=== PATIENT | male | born 1970 | race Caucasian/White ===

== ENCOUNTER 2018-05-01 11:40 | Inpatient (IN) | payer OTHER, MEDICAID ==
[~2018-05-01] VITALS: Ht 162.6 cm; Wt 79.9 kg
--- NOTE | 2018-05-01 11:40 | NUR ---
PATIENT BIBA TO BED 10 AT THIS TIME.
[2018-05-01 11:51] VITALS: BP 75/51
--- NOTE | 2018-05-01 12:00 | NUR ---
PT. BIB ALS DUE TO DIZZYNESS AND FALL X AM. PER ALS CREW " HE WAS WALKING [place], HE FELT DIZZY AND FELL". -LOC. BS IN FIELD 114. BS: UPON ARRIVAL 84 ER MD CONTRERAS MADE AWARE. R AC 20G ESTABLISHED IN FIELD AND 400ML INFUSED OF NS. NO PAIN AT THIS TIME. NO LACERATIONS NOTED OR BRUISING. PT. STATES " I AM HUNGRY".PT. ABLE TO RESPOND TO QUESTIONS TO BEST ABILITY. PT. IS AWAKE AND ALERT. SAFETY PRECAUTIONS IMPLEMENTED. WILL CONTINUE TO MONITOR. ER MADE AWARE.
[2018-05-01] MEDS ORDERED: CHOL400T12 PO (12:04)
[2018-05-01] MEDS ORDERED: NIFE30TE8 PO (12:04)
[2018-05-01] MEDS ORDERED: LISI10TA11 PO (12:04)
[2018-05-01] MEDS ORDERED: OLAN20TA1 PO (12:04)
[2018-05-01] MEDS ORDERED: ASPI81CT89 PO (12:04)
--- NOTE | 2018-05-01 12:05 | NUR ---
BS: 84 . ER MD CONTRERAS MADE AWARE. PROVIDED PATIENT WITH 2 ORANGE JUICES.
--- NOTE | 2018-05-01 12:12 | NUR ---
PT. PROVIDED WITH LUNCH TRAY AT THIS TIME.
--- NOTE | 2018-05-01 13:07 | NUR ---
PT. VOMITED , ER MD CONTRERAS MADE AWARE. PT. WAS CHANGED TO CLEAN CLOTHES , PT. STATES " I AM NAUSEOUS". ER MADE AWARE. BS: 133 AT THIS TIME.
[2018-05-01] MEDS ORDERED: NACL 0.9% 1,000 ML IV ONE ×4 (13:10→20:15)
[2018-05-01] MEDS ORDERED: ONDANSETRON 4 MG/2 ML VIAL IVP ONE (13:10)
--- NOTE | 2018-05-01 13:30 | NUR ---
lab specimen collected , lab notified
--- NOTE | 2018-05-01 13:31 | NUR ---
b/p : / , er md hernandez made aware
[2018-05-01 13:44] LABS: BASOPHILS # (AUTO) 0.1 K/uL (0.00-0.22); BASOPHILS % (AUTO) 0.2 % (0.0-2.0); EOSINOPHILS # (AUTO) 0.1 K/uL (0-0.4); EOSINOPHILS % (AUTO) 0.5 % (0.0-4.0); HEMATOCRIT 41.1 % (36-52); HEMOGLOBIN 13.1 g/dL (12.0-18.0); LYMPHOCYTES # (AUTO) 1.7 K/uL (2.0-11.5); LYMPHOCYTES % (AUTO) 7.6 % (20.5-51.1); MEAN CORPUSCULAR HEMOGLOBIN 27 pg (27-31); MEAN CORPUSCULAR HGB CONC 32 g/dL (33-37); MEAN CORPUSCULAR VOLUME 86.2 fL (80-94); MONOCYTES # (AUTO) 0.9 K/uL (0.8-1.0); MONOCYTES % (AUTO) 3.8 % (1.7-9.3); NEUTROPHILS % (AUTO) 87.9 % (42.2-75.2); PLATELET COUNT (AUTO) 288 K/uL (140-450); RED BLOOD CELL COUNT(AUTO) 4.76 MIL/uL (4.20-6.10); RED CELL DISTRIBUTION WIDTH 13.8 % (11.6-13.7); WHITE BLOOD COUNT (AUTO) 22.8 K/uL (4.8-10.8)
[2018-05-01 13:54] LABS: ANION GAP 10.6 (8-16); CARBON DIOXIDE 25.2 mmol/L (21-32); POTASSIUM 4.8 mmol/L (3.5-5.1)
[2018-05-01 14:01] LABS: ALBUMIN 3.2 g/dL (3.4-5.0); TOTAL BILIRUBIN 0.5 mg/dL (0.0-1.0)
--- NOTE | 2018-05-01 14:33 | NUR ---
pt. awake and alert, hob elevated. pt. is resting and states " I feel good". b/p at er md hernandez made aware. NS 2L INFUSING. Will continue to monitor.
[2018-05-01] MEDS ORDERED: DEXT 5% / NACL 0.45% 1,000 ML IV SCH (14:39)
[2018-05-01] MEDS ORDERED: DOCUSATE SODIUM 100 MG GELCAP PO PRN (14:40)
[2018-05-01] MEDS ORDERED: ONDANSETRON 4 MG/2 ML VIAL IM/IVP PRN (14:40)
[2018-05-01] MEDS ORDERED: HYDROcodone/APAP 5/325 MG 1 TAB TAB PO PRN (14:40)
[2018-05-01] MEDS ORDERED: ACETAMINOPHEN 325 MG TAB PO PRN (14:40)
[2018-05-01] MEDS ORDERED: LORazepam 2 MG/ML VIAL IM/IVP PRN (14:40)
[2018-05-01] MEDS ORDERED: MECLIZINE 25 MG TAB PO PRN (14:50)
--- NOTE | 2018-05-01 15:11 | NUR ---
CALLED [facility] AND SPOKE TO SALBADOR WHO WAS TO LET JOSE KNOW ABOUT THE CONDITION OF PATIENT
[2018-05-01 16:18] VITALS: BP 86/47
--- NOTE | 2018-05-01 16:18 | NUR ---
Patient will be admitted to care of DR. ALVARADO . Admited to TELE . Will go to room 110B. Belongings list completed. Report to IRAM GODINEZ .
--- NOTE | 2018-05-01 16:20 | NUR ---
PATIENT ADMITTED TO THE UNIT FROM ER. PATIENT AWAKE, ALERT AND ORIENTED. NO S/S OF DISTRESS. PATIENT DENIES PAIN. BP 86/47. MADE DR ARTHUR AWARE. PATIENT ON TELE MONITORING. BED LOWERED WITH CALL LIGHT WITHIN REACH. WILL CONTINUE TO MONITOR.
--- NOTE | 2018-05-01 16:45 | NUR ---
STOOL, URINE AND MRSA NARES SAMPLE COLLECTED AND SENT TO THE LAB
[2018-05-01 17:34] LABS: MAGNESIUM 2.3 mg/dL (1.8-2.4); PHOSPHORUS 4.2 mg/dL (2.5-4.9); THYROID STIMULATING HORMONE 4.76 uIU/mL (0.34-3.74)
[2018-05-01 17:50] LABS: PROTHROMBIN TIME 10.7 secs (10.8-13.4)
[2018-05-01] MEDS ORDERED: DIPHENOXYLATE /ATROPINE 2.5 MG TAB PO PRN (18:10)
--- NOTE | 2018-05-01 18:45 | NUR ---
PATIENT REFUSED TO HAVE CT. EXPLAINED TO THE PATIENT THAT RISKS OF NOT HAVING IT DONE. PATIENT STILL REFUSED. MADE DR ARTHUR AWARE
[2018-05-01 18:51] LABS: BARBITURATE, URINE NEG. ng/ml (NEG <=200); BENZODIAZEPINE, URINE NEG. ng/mL (NEG <=200); CANNABINOID, URINE NEG. ng/mL (NEG <=50); COCAINE, URINE NEG. ng/mL (NEG <=300); OPIATE, URINE NEG. ng/mL (NEG <=2000); PHENCYCLIDINE SCREEN,URINE NEG. ng/mL (NEG <=25)
[2018-05-01 18:55] LABS: APPEARANCE,URINE CLEAR (CLEAR); BILIRUBIN,URINE NEGATIVE (NEGATIVE); BLOOD, URINE NEGATIVE (NEGATIVE); COLOR,URINE YELLOW (YELLOW); LEUKOCYTE ESTERASE ,URINE NEGATIVE (NEGATIVE); NITRITE, URINE NEGATIVE (NEGATIVE); UGLUCOSE NEGATIVE (NEGATIVE)
--- NOTE | 2018-05-01 19:00 | NUR ---
PATIENT HAD LARGE BM. STOOL LIQUID AND BROWN. PATIENT CLEANED AND REPOSITIONED FOR COMFORT
[2018-05-01 19:06] LABS: RBC,URINE 0-5 (RARE) /HPF (0-5); WBC,URINE 0-5 (RARE) /HPF (0-5)
--- NOTE | 2018-05-01 19:15 | NUR ---
PATIENT REPORT GIVEN AT BEDSIDE. PATIENT ENDORSED IN STABLE CONDITION.
--- NOTE | 2018-05-01 19:16 | NUR ---
RECEIVED REPORT FROM DAY SHIFT NURSE. PT RESTING IN BED. AAOX2. NO C/O OF PAIN OR SOB. IV TO RIGHT AC #20G, NS AT 100 ML/HR INFUSING WELL. SAFETY PRECAUTION IN PLACE.
[2018-05-01 20:00] VITALS: BP 84/52
--- NOTE | 2018-05-01 20:00 | NUR ---
PT HAD LIQUID BROWN STOOL. PT CLEANED AND CHANGED.
--- NOTE | 2018-05-01 21:00 | NUR ---
DR. WEBER MADE AWARE OF PT'S BROWN LIQUID STOOL AND LOW BP. ORDERED NS 1 L BOLUS.
[2018-05-01] MEDS ORDERED: PIPERACILLIN/TAZOBACTAM 3.375 GM VIAL IV ONE (21:16)
[2018-05-01] MEDS: PIPERACILLIN/TAZOBACTAM 3.375 GM VIAL IV ONE ×2 (21:16→21:20)
[2018-05-01] MEDS: OLANZapine 5 MG TAB PO SCH (21:17)
[2018-05-01] MEDS: PIPER/TAZO 3.375GM/D5W PREMIX 50 ML IV SCH (21:17)
--- NOTE | 2018-05-01 22:30 | NUR ---
PT LYING IN BED. PT HAD LARGE LIQUID BROWN STOOL. PT CLEANED AND CHANGED. ALL NEEDS MET AT THIS TIME. SAFETY PRECAUTION IN PLACE. CALL LIGHT WITHIN REACH.
[2018-05-02] VITALS (25 sets, daily range): BP systolic 61–125; BP diastolic 29–94
--- NOTE | 2018-05-02 01:20 | NUR ---
PT LYING IN BED, WATCHING TV. IVF INFUSING WELL. PT KEPT DRY AND COMFORTABLE.
--- NOTE | 2018-05-02 03:30 | NUR ---
PT SLEEPING BUT EASILY AROUSABLE. NO S/S OF PAIN OR RESP DISTRESS.
--- NOTE | 2018-05-02 05:20 | NUR ---
DR. WEBER MADE AWARE OF PT'S LOW BP 78/36. MD WILL ORDER NS BOLUS.
[2018-05-02] MEDS ORDERED: PIPERACILLIN/TAZOBACTAM 3.375 GM VIAL IV ONE (05:34)
[2018-05-02] MEDS: PIPER/TAZO 3.375GM/D5W PREMIX 50 ML IV SCH (05:48)
[2018-05-02] MEDS ORDERED: NACL 0.9% 500 ML IV ONE ×4 (06:00→20:45)
--- NOTE | 2018-05-02 06:00 | NUR ---
PT STILL REFUSING CT ABDOMEN AND CT HEAD. EXPLAINED TO PT THE RISK AND BENEFITS. PT VERBALIZED UNDERSTANDING BUT STILL REFUSED. DR. WEBER MADE AWARE.
--- NOTE | 2018-05-02 07:15 | NUR ---
RECEIVED PATIENT REPORT AT BEDSIDE. PATIENT AWAKE AND ALERT IN BED. PATIENT ON ROOM AIR. PATIENT DENIES DIZZINESS. PATIENT ON TELE MONITORING. FALL PRECAUTIONS IN PLACE. WILL CONTINUE TO MONITOR
[2018-05-02] MEDS: NACL 0.9% 1,000 ML IV SCH ×3 (07:30→19:54)
--- NOTE | 2018-05-02 07:45 | NUR ---
DR. RIZO MADE AWARE OF PT'S BP 91/46. ENDORSED PT TO DAY SHIFT NURSE. PT IN STABLE CONDITION.
[2018-05-02 07:46] LABS: HEMATOCRIT 36.2 % (36-52); HEMOGLOBIN 11.6 g/dL (12.0-18.0); LYMPHOCYTES # (AUTO) 0.7 K/uL (2.0-11.5); LYMPHOCYTES % (AUTO) 4.1 % (20.5-51.1); MEAN CORPUSCULAR HEMOGLOBIN 28 pg (27-31); MEAN CORPUSCULAR HGB CONC 32 g/dL (33-37); MEAN CORPUSCULAR VOLUME 86.9 fL (80-94); MONOCYTES # (AUTO) 0.7 K/uL (0.8-1.0); MONOCYTES % (AUTO) 3.9 % (1.7-9.3); PLATELET COUNT (AUTO) 214 K/uL (140-450); RED BLOOD CELL COUNT(AUTO) 4.16 MIL/uL (4.20-6.10); RED CELL DISTRIBUTION WIDTH 14.2 % (11.6-13.7); WHITE BLOOD COUNT (AUTO) 17.4 K/uL (4.8-10.8)
[2018-05-02 08:18] LABS: ANION GAP 16.3 (8-16); CARBON DIOXIDE 19.7 mmol/L (21-32); CREATININE 2.1 mg/dL (0.7-1.3)
[2018-05-02 08:25] LABS: PHOSPHORUS 3.6 mg/dL (2.5-4.9)
[2018-05-02 08:28] LABS: CHOL/HDL RATIO 1.5 (1-4.5)
--- NOTE | 2018-05-02 08:56 | NUR ---
PATIENT HAS BEEN SCREENED AND CATEGORIZED MODERATE NUTRITION RISK. PATIENT WILL BE SEEN WITHIN 3-5 DAYS OF ADMISSION. 05/04/18-05/06/18 AI MAC MS, RDN
[2018-05-02] MEDS: OLANZapine 5 MG TAB PO SCH ×2 (09:00→21:08)
[2018-05-02] MEDS: CHOLECALCIFEROL 1,000 IU TAB PO SCH (09:00)
[2018-05-02] MEDS: LACTOBACILLUS RHAMNOSUS GG 1 EACH CAP PO SCH (09:00)
[2018-05-02] MEDS: ASPIRIN 81 MG TAB.CHEW PO SCH (09:01)
[2018-05-02] MEDS ORDERED: NACL 0.9% 1,000 ML IV ONE (10:30)
--- NOTE | 2018-05-02 10:34 | NUR ---
MADE DR RIZO AWARE OF PATIENT'S LOW BP. PATIENT EVALUATED BY DR RIZO IN THE ROOM. PATIENT WAS ABLE TO SIT HIMSELF UP AT THE SIDE OF THE BED. BP RECHECKED 78/34 HR 93. NO S/S OF DISTRESS NOTED. PATIENT DENIES DIZZINESS OR PAIN. ORDERS 1L NS BOLUS. WILL CONTINUE TO MONITOR
--- NOTE | 2018-05-02 11:20 | NUR ---
1L NS BOLUS DONE. BP 76/44. NO S/S OF DISTRESS NOTED. PATIENT DENIES DIZZINESS OR PAIN. DR RIZO PRESENT IN THE ROOM. ORDERS PATIENT TO BE TRANSFERRED TO ICU
[2018-05-02] MEDS ORDERED: NOREPINEPHRINE 8 MG in DEXTROSE 5% 250 ML IV PRN (12:00)
[2018-05-02] MEDS ORDERED: VANCOMYCIN 500 MG VIAL PO SCH (12:00)
[2018-05-02] MEDS: VANCOMYCIN 500 MG VIAL PO SCH ×3 (12:10→23:36)
[2018-05-02] MEDS: PHARMACY COMMENTS MC SCH ×3 (12:16→23:36)
[2018-05-02] MEDS: metroNIDAZOLE 500 MG/NS PREMIX 100 ML IV SCH ×2 (12:40→20:18)
--- NOTE | 2018-05-02 13:00 | NUR ---
RECEIVED PT TRANSFERRED FROM ROOM 110B, PT IS AAOX4, ABLE TO FOLLOW COMMANDS AND MAKE NEEDS KNOWN, NO S/S OF DISTRESS, CLEAR LUNG SOUNDS BRY, ON RA, O2 SAT 97%, DENIES CHEST PAIN, SR ON DUMP MOTORMAN, SOFT ABDOMEN WITH ACTIVE BOWEL SOUNDS, INCONTINENT WITH B&B'S, ABLE TO MOVE ALL EXTREMITIES, SKIN IS WARM AND DRY TO TOUCH, IV SITE TO RIGHT AC, 20GA, RUNNING NS AT 160ML/HR. VSS, DENIES PAIN, ORIENTATED ICU ENVIRONMENT AND EXPLAINED THE REASON HERE TO PT, PT VERBALIZED UNDERSTANDING, HOB ELEVATED 30 DEGREES, SAFETY MEASURES IN PLACE, CALL LIGHT WITHIN REACH, WILL CONTINUE TO MONITOR.
--- NOTE | 2018-05-02 13:05 | NUR ---
DR. CARDOZO CAME IN TO SEE PT AT BEDSIDE, WILL FOLLOW UP WITH NEW ORDERS.
--- NOTE | 2018-05-02 14:00 | NUR ---
NO CHANGE OF CONDITION AT THIS TIME, VSS, DENIES PAIN. PT IS ABLE TO REPOSITION HIMSELF.
[2018-05-02] MEDS: MIDODRINE 5 MG TAB PO SCH ×3 (14:54→23:33)
--- NOTE | 2018-05-02 15:00 | NUR ---
MCDANIELS CATHETER INSERTED WITH ASEPTIC TECHNIQUE, PT TOLERATED WELL.
--- NOTE | 2018-05-02 15:40 | NUR ---
PICC LINE CONSENT SIGNED BY PATIENT, EXPLAINED THE PROCEDURE AND RISKS, PT VERBALIZED UNDERSTANDING.
--- NOTE | 2018-05-02 15:50 | NUR ---
CALLED PT'S CAREGIVER TO OBTAIN THE PT'S DECISION MAKER, THE CAREGIVER JOSE BARKER GAVE ME THE NAME ADONAY ANGIE [phone], CALLED THIS PERSON AND LEFT MESSAGE, WAITING TO CALL BACK.
--- NOTE | 2018-05-02 16:13 | NUR ---
DR. RIZO CAME IN TO ASSESS PT, PT KNOWS HIS NAME AND DATE OF , HE IS IN [facility] ICU, SO DR. RIZO SAID IT IS OK FOR PT TO SIGN THE PICC CONSENT.
--- NOTE | 2018-05-02 16:19 | NUR ---
ADONAY ADAMS CALLED BACK, SHE SAID SHE IS NOT THE DECISION MAKER FOR HIM, PT IS ABLE TO SIGN EVERYTHING BY HIMSELF, NO DECISION MAKER AT THIS TIME.
--- NOTE | 2018-05-02 16:48 | NUR ---
PICC LINE INSERTED BY PICC LINE NURSE IRAM ARCEO AT BEDSIDE, X-RAY CONFIRMED THE INSERTION, AND OK TO USE PER PICC LINE NURSE.
--- NOTE | 2018-05-02 18:00 | NUR ---
PT IS EATING IN BED, BP 68/29, DENIES PAIN, NO S/S OF HYPOTENSION, LEVOPHED DRIP STATED.
--- NOTE | 2018-05-02 18:59 | NUR ---
PT'S HR WENT UP TO 150, FACE TURN RED, TEMP 97.0F, HOLD LEVOPHED, DR. CHADWICK MADE AWARE AND CAME TO SEE PT, WILL FOLLOW UP WITH NEW ORDERS. Addendum: 05/02/18 at 1904 by Julian Og RN PT STATED TIRED, DIFFICULTY BREATHING, LUNG SOUNDS CLEAR.
--- NOTE | 2018-05-02 19:19 | NUR ---
REPORT GIVEN TO DOG LICENSE OFFICER SUPERVISOR NURSE AT BEDSIDE FOR CONTINUE OF CARE.
--- NOTE | 2018-05-02 19:20 | NUR ---
RECEIVED REPORT FROM IRAM BAUM FOR CONTINUITY OF CARE. PT IS A/OX3, ON ROOM AIR. PT IS ABLE TO MAKE NEEDS KNOWN, ABLE TO FOLLOW COMMANDS. PT ON BEDREST. SKIN IS INTACT. PT HAS A 20G IV TO RIGHT FOREARM AND PIIC LINE TO RIGHT UPPER ARM, BOTH ASYMPTOMATIC AND INTACT. DISCUSSED PLAN OF CARE WITH PT, PT VERBALIZED UNDERSTANDING. VITAL SIGNS WITHIN NORMAL LIMITS. PT STABLE, DENIES PAIN, NO SIGNS OF DISTRESS NOTED AT THIS TIME. PT POSITIONED FOR COMFORT. BED IN LOWEST POSITION, BED ALARM ON. CALL LIGHT WITHIN REACH, WILL CONTINUE TO MONITOR.
--- NOTE | 2018-05-02 19:58 | NUR ---
NOTIFIED DR PANIAGUA ABOUT LOW BLOOD PRESSURES; CURRENTLY 70/48. PT AOX3, DEVELOPMENTALLY DISABLED, TALKING TO STAFF @ BEDSIDE. DENIES CP/SOB, DIZZINESS. MD AWARE, 0.5 LITER BOLUS ORDERED. WILL CONTINUE TO OBSERVE
[2018-05-02] MEDS: PIPER/TAZO 2.25GM/D5W PREMIX 50 ML IV SCH (20:18)
--- NOTE | 2018-05-02 20:40 | NUR ---
INFORMED DR PANIAGUA CURRENT BLOOD PRESSURE 70/51, 0.5 LITER GIVEN, MD ORDERED 2ND 0.5 LITER BOLUS. WILL CARRY OUT ORDERS. WILL CONTINUE TO OBSERVE
[2018-05-02] MEDS ORDERED: OLANZapine 5 MG TAB ONE (20:49)
--- NOTE | 2018-05-02 21:06 | NUR ---
NOTIFIED DR PANIAGUA BP 64/38; PHENYLEPHRINE DRIP ORDERED WILL CONTINUE TO OBSERVE.
[2018-05-02] MEDS ORDERED: PHENYLEPHRINE 10 MG in NACL 0.9% 250 ML IV PRN (21:10)
[2018-05-02] MEDS ORDERED: PHENYLEPHRINE 10 MG/ML VIAL ONE ×4 (21:19→22:45)
[2018-05-02] MEDS: PHENYLEPHRINE 40 MG in NACL 0.9% 250 ML IV PRN (22:54)
[2018-05-03] VITALS (77 sets, daily range): BP systolic 64–162; BP diastolic 24–94
--- NOTE | 2018-05-03 00:30 | NUR ---
VITAL SIGNS WITHIN NORMAL LIMITS, BLOOD PRESSURE MORE STABLE NOW. PT DENIES PAIN, NO SIGNS OF DISTRESS NOTED AT THIS TIME. PT POSITIONED FOR COMFORT. BED IN LOWEST POSITION, BED ALARM ON. CALL LIGHT WITHIN REACH, WILL CONTINUE TO MONITOR.
--- NOTE | 2018-05-03 03:21 | NUR ---
KENDELL-SYNEPHRINE WAS INCREASED DUE TO LOW BLOOD PRESSURE.
[2018-05-03] MEDS: NACL 0.9% 1,000 ML IV SCH ×2 (03:25→05:29)
--- NOTE | 2018-05-03 03:37 | NUR ---
PT BLOOD PRESSURE STARTED DECREASING AND PT STARTED DESATURATING. LUNG SOUNDS CLEAR AND TEMPERATURE 98.0, BUT PT IS FLUSHED. REPOSITIONED PT AND O2 IS BEING GIVEN TO PT. DR PANIAGUA CAME TO SEE PT AND SAID TO STOP IVF AND HE WILL ORDER BIPAP FOR PT. WILL CONTINUE TO MONITOR PT CLOSELY.
[2018-05-03] MEDS: PIPER/TAZO 2.25GM/D5W PREMIX 50 ML IV SCH ×3 (04:39→20:34)
--- NOTE | 2018-05-03 04:39 | NUR ---
JAMES BLOOD FROM PIIC LINE AND FLUSHED WELL. PT TOLERATED WELL.
[2018-05-03 05:05] LABS: HEMATOCRIT 34.5 % (36-52); HEMOGLOBIN 11.1 g/dL (12.0-18.0); LYMPHOCYTES # (AUTO) 0.4 K/uL (2.0-11.5); LYMPHOCYTES % (AUTO) 3.8 % (20.5-51.1); MEAN CORPUSCULAR HEMOGLOBIN 28 pg (27-31); MEAN CORPUSCULAR HGB CONC 32 g/dL (33-37); MEAN CORPUSCULAR VOLUME 86.6 fL (80-94); MONOCYTES # (AUTO) 0.6 K/uL (0.8-1.0); MONOCYTES % (AUTO) 5.2 % (1.7-9.3); NEUTROPHILS # (AUTO) 10.5 K/uL (1.8-7.7); PLATELET COUNT (AUTO) 223 K/uL (140-450); RED BLOOD CELL COUNT(AUTO) 3.99 MIL/uL (4.20-6.10); RED CELL DISTRIBUTION WIDTH 14.6 % (11.6-13.7); WHITE BLOOD COUNT (AUTO) 11.5 K/uL (4.8-10.8)
[2018-05-03] MEDS: metroNIDAZOLE 500 MG/NS PREMIX 100 ML IV SCH (05:29)
[2018-05-03] MEDS ORDERED: PHENYLEPHRINE 10 MG/ML VIAL ONE (05:37)
[2018-05-03] MEDS: VANCOMYCIN 500 MG VIAL PO SCH (05:39)
[2018-05-03] MEDS: PHARMACY COMMENTS MC SCH (05:39)
[2018-05-03] MEDS: PHENYLEPHRINE 40 MG in NACL 0.9% 250 ML IV PRN ×2 (05:39→10:13)
[2018-05-03] MEDS: MIDODRINE 5 MG TAB PO SCH ×3 (06:33→18:31)
[2018-05-03 06:37] LABS: MAGNESIUM 1.4 mg/dL (1.8-2.4); PHOSPHORUS 3.3 mg/dL (2.5-4.9); POTASSIUM 4.5 mmol/L (3.5-5.1)
[2018-05-03 06:38] LABS: ANION GAP 14.6 (8-16); CARBON DIOXIDE 16.9 mmol/L (21-32); CREATININE 1.7 mg/dL (0.7-1.3)
--- NOTE | 2018-05-03 06:40 | NUR ---
UPDATED DR GAITAN ABOUT THIS SHIFT'S EVENTS AND ALL THE CHANGES MADE OVERNIGHT.
--- NOTE | 2018-05-03 07:21 | NUR ---
ENDORSED PT TO IRAM GUPTA FOR CONTINUITY OF CARE. PT IN STABLE CONDITION. Addendum: 05/03/18 at 0722 by Little Cormier RN ENDORSED TO HUBER LADD.
--- NOTE | 2018-05-03 07:30 | NUR ---
RECEIVED PT IN BED A&O X3, VERBAL, ABLE TO MAKE NEEDS KNOWN. PERRL. BILATERAL LUNG SOUNDS CLEAR. DENIES SOB. ON O2 @ 4LMIN VIA NC. ROUND ABDOMEN. BOWEL SOUNDS ACTIVE. ABLE TO MOVE ALL EXTREMITIES WITH RIGHT ARM WEAKNESS. PICC LINE TO RIGHT UPPER ARM AND PERIPHERAL IV LINE TO RAC 20G. PATENT AND ASYMPTOMATIC. KENDELL-SYNEPHRINE RUNNING AT 150 MCG/MIN TO KEEP SBP ABOVE 90. CALL LIGHT IN REACH. BED KEPT ELEVATED TO 30 DEGREES AND TO THE LOWEST. AFEBRILE. DENIES PAIN OR DISCOMFORT. WILL CONTINUE TO MONITOR.
[2018-05-03] MEDS: ASPIRIN 81 MG TAB.CHEW PO SCH (08:08)
[2018-05-03] MEDS: LACTOBACILLUS RHAMNOSUS GG 1 EACH CAP PO SCH (08:08)
--- NOTE | 2018-05-03 08:15 | NUR ---
DR. Hemant XIE, RING CUTTER LATHE OPERATOR IN TO SEE PT.
--- NOTE | 2018-05-03 08:15 | NUR ---
PT ATE BREAKFAST 100% AND FED HIMSELF WITH SET UP ASSISTANCE.
[2018-05-03] MEDS: OLANZapine 5 MG TAB PO SCH ×2 (08:50→20:36)
[2018-05-03] MEDS: CHOLECALCIFEROL 1,000 IU TAB PO SCH (08:50)
[2018-05-03] MEDS ORDERED: MAG SULF 2000 MG/WATER PREMIX 50 ML IV SCH (09:03)
--- NOTE | 2018-05-03 09:15 | NUR ---
VOMITED LARGE AMOUNT OF PREVIOUSLY INGESTED FOOD. COMPLETE BED BATH GIVEN. LINENS CHANGED.
--- NOTE | 2018-05-03 09:30 | NUR ---
DR. RIZO NOTIFIED OF PT'S VOMITING. WILL KEEP PT. NPO EXCEPT MEDS.
[2018-05-03] MEDS ORDERED: DEXT 5% / NACL 0.45% 1,000 ML IV SCH (09:40)
--- NOTE | 2018-05-03 11:15 | NUR ---
TITRATED KENDELL-SYNEPHRINE DRIP TO 100 MCG/MIN DUE TO BP 128/93. PT DENIES ANY PAIN OR DISCOMFORT. WILL CONTINUE TO MONITOR.
--- NOTE | 2018-05-03 12:33 | NUR ---
PT THREW UP SOON HE TOOK THE MIDODRINE PO ORDERED. DR. RIZO WAS NOTIFIED WITH NO NEW ORDER BUT TO CONTINUE TO KEEP HIM NPO EXCEPT MEDS.
--- NOTE | 2018-05-03 14:14 | NUR ---
PT DENIES ANY PAIN OR DISCOMFORT. DENIES N/V. CONTINUES WITH NPO EXCEPT MEDS. VSS. WILL CONTINUE TO MONITOR.
--- NOTE | 2018-05-03 14:17 | NUR ---
TITRATED KENDELL-SYNEPHRINE DRIP DOWN TO 50 MCG/MIN DUE TO JF=979/93. WILL CONTINUE TO MONITOR.
--- NOTE | 2018-05-03 14:19 | NUR ---
ECHOCARDIOGRAM IS BEING PERFORMED AT BED SIDE.
--- NOTE | 2018-05-03 16:20 | NUR ---
PT RESTING IN BED. DENIES ANY PAIN OR DISCOMFORT. DENIES N/V. VSS. AFEBRILE. REPOSITIONED FOR COMFORT. CONTINUING W/ KENDELL-SYNEPHRINE DRIP @50 MCG/MIN. WILL CONTINUE TO MONITOR.
--- NOTE | 2018-05-03 16:50 | NUR ---
PT HAD A LARGE AMOUNT OF VOMIT. NOTIFIED DR. RIZO. NEW ORDER RECEIVED FOR KUB. ASSISTED PT FOR BED BATH AND HYGIENE. TOLERATED WELL. PT DENIES FURTHER N/V AT THIS TIME. WILL CONTINUE TO MONITOR.
--- NOTE | 2018-05-03 17:37 | NUR ---
KUB IS BEING PERFORMED AT BED SIDE AT THIS TIME.
--- NOTE | 2018-05-03 17:45 | NUR ---
KENDELL-SYNEPHRINE DRIP STOPPED DUE TO BU=973/79 AT THIS TIME. PT DENIES ANY DISCOMFORT OR N/V. VSS. WILL CONTINUE TO MONITOR.
--- NOTE | 2018-05-03 19:09 | NUR ---
REPORT GIVEN TO INCOMING NURSE, IRAM VIVAS. PT VSS AND DENIES ANY DISCOMFORT AND N/V. ALL SAFETY PRECAUTIONS ARE IN PLACE.
--- NOTE | 2018-05-03 19:10 | NUR ---
RECEIVED REPORT FROM IRAM MORALEZ FOR CONTINUITY OF CARE. PT IS A/OX3, ON 4L O2 VIA NASAL CANNULA. PT IS ABLE TO MAKE NEEDS KNOWN, ABLE TO FOLLOW COMMANDS. PT ON BEDREST. SKIN IS INTACT. PT HAS A 20G IV TO RIGHT AC WITH BLOOD IN TUBING, FLUSHED WITH 10ML NS AND LOCKED TUBING BUT BLOOD STILL BACK FLOWS. PT ALSO HAS PICC LINE TO RIGHT UPPER ARM, ASYMPTOMATIC AND INTACT. DISCUSSED PLAN OF CARE WITH PT, PT VERBALIZED UNDERSTANDING. VITAL SIGNS WITHIN NORMAL LIMITS. PT STABLE, DENIES PAIN, NO SIGNS OF DISTRESS NOTED AT THIS TIME. PT POSITIONED FOR COMFORT. BED IN LOWEST POSITION, BED ALARM ON. CALL LIGHT WITHIN REACH, WILL CONTINUE TO MONITOR.
--- NOTE | 2018-05-03 20:15 | NUR ---
PT AGITATED, HR 142 TO 169, DOCTOR ARCELIA KNOW HER CONDITION
--- NOTE | 2018-05-03 20:38 | NUR ---
ADMINISTERED SCHEDULED MEDICATIONS, PT TOLERATED WELL.
--- NOTE | 2018-05-03 22:10 | NUR ---
PT ASKED FOR LIGHTS TO BE TURNED OFF. PT IS RESTING COMFORTABLY NOW.
--- NOTE | 2018-05-03 23:00 | NUR ---
ON COMING NOTE RECEIVED REPORT FROM NURSE. PT IS A/OX2,TIME IS SITUATIONAL R/T PT DX OF DOWNS SYNDROME. LUNG CTA IN ALL PORTILLO. RESP IS EVEN AND UNLABORED. PT ON TELEMONITOR WITH SR AT 86. PT ABD ROUND TIGHT AND DISTENDED, WITH HYPOACTIVE BS IN ALL QUAD. ON 2L O2 VIA NASAL CANNULA AND WITH SATURATION AT 98%. PT HAS F/C TO GRAVITY WITH CLEAR NAYE COLOR URINE.PT IS ABLE TO MAKE NEEDS KNOWN, ABLE TO FOLLOW COMMANDS. PT ON BEDREST. SKIN IS INTACT. PT HAS A 20G IV TO RIGHT AC WITH BLOOD IN TUBING, FLUSHED WITH 10ML NS AND LOCKED TUBING BUT BLOOD STILL BACK FLOWS. PT ALSO HAS PICC LINE TO RIGHT UPPER ARM, ASYMPTOMATIC AND INTACT. DISCUSSED PLAN OF CARE WITH PT, PT VERBALIZED UNDERSTANDING. VSS FOR CURRENT CONDITION AND HISTORY. DENIES PAIN, NO SIGNS OF DISTRESS NOTED AT THIS TIME. PT POSITIONED FOR COMFORT. BED IN LOWEST POSITION, BED ALARM ON. CALL LIGHT WITHIN REACH, WILL CONTINUE TO MONITOR.
--- NOTE | 2018-05-03 23:28 | NUR ---
ENDORSED PT TO OFF TRACK BETTING MANAGER. PT STABLE.
[2018-05-04] VITALS (8 sets, daily range): BP systolic 100–141; BP diastolic 68–99
--- NOTE | 2018-05-04 00:30 | NUR ---
PT HAD EMESIS GREEN IN CLOR AND BILE FOWL SMELLING. NURSE WALKED IN ROOM PT BEGAN TO HAD EMESIS AGAIN AND PT OVER FLOWED EMESIS BASIN X3. PT HAD APPROXIMATELY 500ML OF EMESIS. PT CLEANED AND PLACE AT 45%, V/S 112/67, 91,22, 97.8. PT DENIES ANY PAIN AND DENIES NEED FOR MORE EMESIS
--- NOTE | 2018-05-04 01:30 | NUR ---
DR PANIAGUA ORDER EKG, BUT HR IS OVER 148, PT MOVING NON STOP , UNABLE TO OBTAIN EKG. HE WAS NOTIFIED AND HOLD THE ORDER UNTIL THE PT IS ABLE TO STAY STEEL/. Addendum: 05/04/18 at 0528 by Graciela Khan RT WRONG PATIENT
--- NOTE | 2018-05-04 04:00 | NUR ---
AT [address] DR PANIAGUA CALLED THE ER DR KEENE AND INTUBATED THE PT. PT WAS INTUBATED WITH SIZE 7.5, AT 25CM AT [facility]. X RAY WAS DONE, VENT SETTINGS AC 12, VT 500, PEEP 5, 50% FIO2. SPUTUM WAS COLLECTED AND SEND TO THE LAB.VENT CK WAS DONE, HR STILL HIGH 132, BP IS 253/108. PT IS ON PROPOFOL AT THIS TIME. Addendum: 05/04/18 at 0527 by Graciela Khan RT WRONG PATIENT
[2018-05-04] MEDS: MIDODRINE 5 MG TAB PO SCH ×4 (05:09→18:00)
[2018-05-04] MEDS: PIPER/TAZO 2.25GM/D5W PREMIX 50 ML IV SCH ×3 (05:14→20:13)
[2018-05-04 05:36] LABS: BASOPHILS % (AUTO) 0.1 % (0.0-2.0); EOSINOPHILS # (AUTO) 0.1 K/uL (0-0.4); EOSINOPHILS % (AUTO) 0.7 % (0.0-4.0); HEMOGLOBIN 10.4 g/dL (12.0-18.0); LYMPHOCYTES # (AUTO) 0.8 K/uL (2.0-11.5); LYMPHOCYTES % (AUTO) 8.6 % (20.5-51.1); MEAN CORPUSCULAR HEMOGLOBIN 28 pg (27-31); MEAN CORPUSCULAR HGB CONC 33 g/dL (33-37); MEAN CORPUSCULAR VOLUME 85.5 fL (80-94); MONOCYTES # (AUTO) 0.6 K/uL (0.8-1.0); MONOCYTES % (AUTO) 7.1 % (1.7-9.3); NEUTROPHILS # (AUTO) 7.4 K/uL (1.8-7.7); NEUTROPHILS % (AUTO) 83.5 % (42.2-75.2); PLATELET COUNT (AUTO) 185 K/uL (140-450); RED BLOOD CELL COUNT(AUTO) 3.74 MIL/uL (4.20-6.10); RED CELL DISTRIBUTION WIDTH 14.5 % (11.6-13.7); WHITE BLOOD COUNT (AUTO) 8.9 K/uL (4.8-10.8)
[2018-05-04 05:50] LABS: ANION GAP 12.3 (8-16); CARBON DIOXIDE 19.7 mmol/L (21-32); CREATININE 1.4 mg/dL (0.7-1.3)
[2018-05-04 05:54] LABS: MAGNESIUM 2.1 mg/dL (1.8-2.4); PHOSPHORUS 2.6 mg/dL (2.5-4.9)
[2018-05-04] MEDS ORDERED: METOCLOPRAMIDE 10 MG/2 ML INJ VIAL IVP PRN (07:10)
--- NOTE | 2018-05-04 07:15 | NUR ---
ASSUMED CONTINUITY OF CARE, REPORT RECEIVED FROM POLLO RN. PATIENT IN STABLE CONDITION. FULL ASSESSMENT TO FOLLOW. Addendum: 05/04/18 at 0801 by Brittany Peters RN PATIENT IS AWAKE, ORIENTED, ABLE TO FOLLOW COMMANDS. SKIN WARM TO TOUCH WNL, TOENAILS WNL, NO EDEMA, WITH HAIR GROWTH AND +2 BILATERAL PEDAL PULSES. ON ROOM AIR. FC IN PLACE. BILATERAL BREATH SOUNDS ARE CLEAR. ERIN PICC LINE, DRESSING DRY AND INTACT. RFA PERIPHERAL IV PATENT AND INTACT. CALL LIGHT WITHIN REACH, BED AT LOWEST POSSIBLE POSITION. WILL CONTINUE TO MONITOR PATIENT.
--- NOTE | 2018-05-04 08:00 | NUR ---
DR ALVARADO AND GROUP ROUNDING ON THE PATIENT, WILL FOLLOW UP WITH ORDERS.
--- NOTE | 2018-05-04 08:10 | NUR ---
DOWNGRADED TO TELE STATUS
--- NOTE | 2018-05-04 08:40 | NUR ---
MORNING MEDS GIVEN, PATIENT TOLERATED WELL.
[2018-05-04] MEDS: LACTOBACILLUS RHAMNOSUS GG 1 EACH CAP PO SCH (08:41)
[2018-05-04] MEDS: ASPIRIN 81 MG TAB.CHEW PO SCH (08:41)
[2018-05-04] MEDS: CHOLECALCIFEROL 1,000 IU TAB PO SCH (08:42)
[2018-05-04] MEDS: OLANZapine 5 MG TAB PO SCH ×2 (08:42→20:13)
[2018-05-04] MEDS: DEXT 5% /NACL 0.9% 1,000 ML IV SCH (09:33)
--- NOTE | 2018-05-04 11:05 | NUR ---
Social Work Notes: I attempted to contact Patient's facility [facility] at . No one responded and I left a voice mail Message with my contact information and a request for a call back.
--- NOTE | 2018-05-04 19:06 | NUR ---
DR WEBER MADE AWARE THAT MIDODRINE WAS WITHHELD FOR 1800 DOSE BP 132/88
--- NOTE | 2018-05-04 19:15 | NUR ---
RECEIVED BEDSIDE REPORT FROM MORNING NURSE, PATIENT AAO X 3, VERBALLY RESPONSIVE, ABLE TO FOLLOW COMMANDS. ON ROOM AIR WITH O2 SAT 95% NOTED. BILATERAL LUNG SOUND CLEAR. PICC LINE TO RIGHT UPPER ARM, RUNNING WITH D5NS 60ML/HR. ACTIVE BOWEL SOUND FROM ALL 4 QUADS. NO N/V NOTED. DENIES PAIN AT THIS TIME. MCDANIELS CATH IN PLACE WITH CLEAR YELLOW URINE NOTED. ABLE TO MOVE ALL EX'S WITH SLIGHT GENERALIZED WEAKNESS NOTED. HOB ELEVATED, BED IN LOW POSITION, CALL LIGHT WITHIN REACH. WILL CONTINUE TO MONITOR.
--- NOTE | 2018-05-04 19:25 | NUR ---
REPORT GIVEN TO NOC RN FOR CONTINUITY OF CARE. PATIENT IN STABLE CONDITION
--- NOTE | 2018-05-04 21:00 | NUR ---
ADMINISTERED SCHEDULED MEDICATIONS ORDERED. TOLERATED WELL, DENIES NAUSEA NOTED. WILL CONTINUE TO MONITOR.
--- NOTE | 2018-05-04 23:00 | NUR ---
NO ACUTE DISTRESS NOTED. DENIES PAIN. VSS. WILL CONTINUE TO MONITOR.
[2018-05-05] VITALS: BP 120/76
--- NOTE | 2018-05-05 | NUR ---
HOLD MIDODRINE DUE TO SBP ABOVE 120 PARAMETER. WILL CONTINUE TO MONITOR.
--- NOTE | 2018-05-05 01:00 | NUR ---
PATIENT IN ASLEEP AT THIS TIME, AROUSABLE TO VOICE. NO ACUTE DISTRESS NOTED. DENIES PAIN. WILL CONTINUE TO MONITOR.
[2018-05-05] MEDS: DEXT 5% /NACL 0.9% 1,000 ML IV SCH (01:38)
--- NOTE | 2018-05-05 03:00 | NUR ---
PATIENT IN ASLEEP AT THIS TIME, AROUSABLE TO VOICE. DENIES PAIN. NO ACUTE DISTRESS NOTED.
[2018-05-05 04:00] VITALS: BP 156/74
[2018-05-05] MEDS: PIPER/TAZO 2.25GM/D5W PREMIX 50 ML IV SCH (05:02)
--- NOTE | 2018-05-05 05:10 | NUR ---
ADMINISTERED IV ABX ORDERED. NO ACUTE DISTRESS NOTED.
[2018-05-05] MEDS: MIDODRINE 5 MG TAB PO SCH ×2 (06:00)
--- NOTE | 2018-05-05 06:00 | NUR ---
HOLD MIDODRINE PER PARAMETER, BP 135/90 NOTED. WILL CONTINUE TO MONITOR.
--- NOTE | 2018-05-05 06:40 | NUR ---
REPORT RECEIVED FROM ICU NURSE , PT TRANSFERRED FROM [facility] TO ROOM 108A IN STABLE CONDITION. PT AOX1-2, HE IS ON FALLS PRECAUTIONS WITH ALL FALLS PRECAUTIONS IN PLACE. PT HAS PICC LINE IN R UPPER ARM IN TACT WELL OTHER IV SITE 20G ON R F/A. PT LUNGS CLEAR BUT BREATH SOUNDS DIMINISHED. PT ABDOMEN DISTENDED AND FIRM WITH DIMINISHED B/S. PT SKIN INTACT EXCEPT FOR REDNESS OF SACRAL AND ORLY AREA. SOME MILD EDEMA NOTED IN HANDS. PT HAS MCDANIELS CATHETER SIZE 16FRENCH INTACT AND DRAINING LIGHT NAYE URINE. PT DENIES PAIN V/S FOLLOWS T 97.4 P 85 R 20 B/P 131/92 02 91% ON R/A.
--- NOTE | 2018-05-05 06:40 | NUR ---
TRANSFERRED TO FLOOR ROOM 109A, REPORT GIVEN TO LEXY. RN. PATIENT VSS, NO ACUTE DISTRESS NOTED.
--- NOTE | 2018-05-05 07:34 | NUR ---
GAVE REPORT TO NOAH RN DAYSHIFT NURSE AT BEDSIDE FOR CONTINUITY OF CARE, PT IN STABLE CONDITION.
--- NOTE | 2018-05-05 07:35 | NUR ---
Received bedside report from pm nurse Lyric. Pt awake, verbally responsive, no c/o discomfort, respirations even & nonlabored in room air. Right upper arm PICC line intact & asymptomatic. Call light within reach.
[2018-05-05 08:00] VITALS: BP 143/95
[2018-05-05] MEDS ORDERED: OLAN5TAB30 PO (08:02)
[2018-05-05] MEDS: CHOLECALCIFEROL 1,000 IU TAB PO SCH (09:00)
[2018-05-05] MEDS: ASPIRIN 81 MG TAB.CHEW PO SCH (09:00)
[2018-05-05] MEDS: OLANZapine 5 MG TAB PO SCH (09:00)
[2018-05-05] MEDS: LACTOBACILLUS RHAMNOSUS GG 1 EACH CAP PO SCH (09:00)
[2018-05-05 10:07] LABS: BASOPHILS % (AUTO) 0.4 % (0.0-2.0); EOSINOPHILS # (AUTO) 0.2 K/uL (0-0.4); EOSINOPHILS % (AUTO) 1.8 % (0.0-4.0); HEMATOCRIT 35.3 % (36-52); HEMOGLOBIN 11.5 g/dL (12.0-18.0); MEAN CORPUSCULAR HEMOGLOBIN 28 pg (27-31); MEAN CORPUSCULAR HGB CONC 33 g/dL (33-37); MEAN CORPUSCULAR VOLUME 85.6 fL (80-94); MONOCYTES # (AUTO) 0.4 K/uL (0.8-1.0); MONOCYTES % (AUTO) 3.5 % (1.7-9.3); NEUTROPHILS # (AUTO) 9.9 K/uL (1.8-7.7); NEUTROPHILS % (AUTO) 85.3 % (42.2-75.2); PLATELET COUNT (AUTO) 265 K/uL (140-450); RED BLOOD CELL COUNT(AUTO) 4.13 MIL/uL (4.20-6.10); RED CELL DISTRIBUTION WIDTH 14.8 % (11.6-13.7); WHITE BLOOD COUNT (AUTO) 11.6 K/uL (4.8-10.8)
[2018-05-05 10:23] LABS: ANION GAP 15.4 (8-16); CARBON DIOXIDE 20.8 mmol/L (21-32); CREATININE 1.4 mg/dL (0.7-1.3); POTASSIUM 4.2 mmol/L (3.5-5.1)
--- NOTE | 2018-05-05 10:25 | NUR ---
Right upper arm PICC line & lino cath discontinued. Name band removed. Written & discharge instructions provided to pt & caregiver Brad. Pt discharged to [facility]. Amb off unit accompanied by caregiver. All belongings with pt upon departure.
[2018-05-05] MEDS ORDERED: LISI10TA11 PO (11:28)
== END 2018-05-05 10:20 | disposition home health service (06) | DRG 371 ==
LOC: MED 11:40 → MTU 14:39 → MIC 05-02 13:00 → MTU 05-05 06:24
PROVIDERS: ADMIT General Practice; ATTEND General Practice
PROC: 06H033Z Insertion of Infusion Device into Inferior Vena Cava, Percutaneous Approach (ICD-10-PCS; principal; 2018-05-02)
DX: A04.9 Bacterial intestinal infection, unspecified (principal); N17.0 Acute kidney failure with tubular necrosis; J81.1 Chronic pulmonary edema; E44.0 Moderate protein-calorie malnutrition; E87.1 Hypo-osmolality and hyponatremia; A09 Infectious gastroenteritis and colitis, unspecified; I95.9 Hypotension, unspecified; G90.8 Other disorders of autonomic nervous system; E83.42 Hypomagnesemia; G80.9 Cerebral palsy, unspecified; I10 Essential (primary) hypertension; F29 Unspecified psychosis not due to a substance or known physiological condition; E66.9 Obesity, unspecified; E86.0 Dehydration; E02 Subclinical iodine-deficiency hypothyroidism; F71 Moderate intellectual disabilities; Z68.30 Body mass index [BMI] 30.0-30.9, adult; Q90.9 Down syndrome, unspecified; Z79.82 Long term (current) use of aspirin; Z79.899 Other long term (current) drug therapy
CPT/HCPCS: 36415; 71045; 74018; 80048; 80053; 80305; 81001; 82140; 82948; 83036; 83605; 83690; 83735; 83880; 84100; 84134; 84443; 84484; 85025; 85610; 85730; 87040; 87045; 87070; 87081; 89055; 93005; 93880; 96374; 97530; 99285; C1751; J2370; J2405; J2543; J3370; J3475; J3490; J7030; J7042; J7060; Q0092

== ENCOUNTER 2018-09-13 16:45 | Inpatient (IN) | payer OTHER, MEDICAID ==
[~2018-09-13] VITALS: Ht 157.5 cm; Wt 75.3 kg
[~2018-09-13 16:45] MED LIST: ASPI-1718 PO; CHOL400T12 PO; LISI10TA11 PO; OLAN20TA1 PO; OLAN5TAB30 PO
--- NOTE | 2018-09-13 16:48 | NUR ---
Patient transferred to bed 3 via wheelchair, accompanied by laboratory animal caretaker. RN evaluating patient at bedside.
[2018-09-13 16:50] VITALS: BP 69/29
--- NOTE | 2018-09-13 16:55 | NUR ---
PT PLACED IN [place] POSITION DUE TO LOW BP 69/29. DR. LOPEZ AWARE OF PT CONDITION.
[2018-09-13] MEDS ORDERED: NACL 0.9% 1,000 ML IV ONE (17:00)
--- NOTE | 2018-09-13 17:00 | NUR ---
C/O GENERAL WEAKNESS X1 DAY. CAREGIVER DENIES N/V/D/FEVER. PER CAREGIVER, PT NORMALLY CAN WALK, BUT OF NOW IS FEELING TOO WEAK. PT PRESENTED TO THE ER HYPOTENSIVE AT 69/34, TACHYCARDIC AT 113 BPM, O2 SAT 92%, FEBRILE AT 102.3, RESPIRATORY RATE 24. PT DENIES PAIN. IV STARTED AND 1000ML NS BOLUSED PER ORDER, LABS AND BLOOD CULTURES DRAWN, PT PLACED ON 15 LPM NRB, AND IN [place] POSITION. COOLING MEASURES INITIATED, NO BLANKET OR SOCKS ON PT AT THIS TIME.
--- NOTE | 2018-09-13 17:01 | NUR ---
Dr. Savage evaluating patient at bedside.
[2018-09-13] MEDS ORDERED: LOSA50TA66 PO (17:03)
[2018-09-13] MEDS ORDERED: VITD1000 PO (17:03)
[2018-09-13 17:27] LABS: HEMATOCRIT 39.4 % (36-52); HEMOGLOBIN 12.8 g/dL (12.0-18.0); MEAN CORPUSCULAR HEMOGLOBIN 28 pg (27-31); MEAN CORPUSCULAR HGB CONC 33 g/dL (33-37); MEAN CORPUSCULAR VOLUME 84.7 fL (80-94); PLATELET COUNT (AUTO) 258 K/uL (140-450); RED BLOOD CELL COUNT(AUTO) 4.65 MIL/uL (4.20-6.10); RED CELL DISTRIBUTION WIDTH 14.1 % (11.6-13.7); WHITE BLOOD COUNT (AUTO) 15.1 K/uL (4.8-10.8)
[2018-09-13 17:42] LABS: PROTHROMBIN TIME 9.8 secs (10.8-13.4)
[2018-09-13 17:45] LABS: ACETAMINOPHEN < 0.5 ug/ml (10-30); SALICYLATE < 2.8 mg/dL (2.8-20.0)
[2018-09-13 17:47] LABS: ALBUMIN 3.5 g/dL (3.4-5.0); ANION GAP 13.8 (8-16); CARBON DIOXIDE 25.1 mmol/L (21-32); CREATININE 3.7 mg/dL (0.7-1.3); POTASSIUM 5.9 mmol/L (3.5-5.1); TOTAL BILIRUBIN 0.8 mg/dL (0.0-1.0)
[2018-09-13] MEDS ORDERED: DEXTROSE 50% 50 ML SYR IVP ONE (17:50)
[2018-09-13] MEDS ORDERED: INSULIN REGULAR, HUMAN 100 UNIT/ML VIAL SUBQ ONE (17:50)
--- NOTE | 2018-09-13 17:51 | NUR ---
PT PLACED ON 11 LPM NRB DUE TO O2 SAT
--- NOTE | 2018-09-13 17:51 | NUR ---
BP IS 68/26, DR. LOPEZ AWARE
--- NOTE | 2018-09-13 17:54 | NUR ---
PROVIDED URINAL FOR PT
[2018-09-13] MEDS ORDERED: PIPERACILLIN/TAZOBACTAM 3.375 GM in DEXTROSE 5% 50 ML IV ONE (17:55)
[2018-09-13] MEDS ORDERED: NACL 0.9% 2,000 ML IV ONE (17:55)
[2018-09-13 17:57] LABS: LYMPHOCYTES % (MANUAL) 1 % (20-46); MONOCYTES % (MANUAL) 3 % (5-12)
[2018-09-13] MEDS ORDERED: PIPERACILLIN/TAZOBACTAM 3.375 GM VIAL IV ONE (18:09)
[2018-09-13] MEDS: NACL 0.9% 1,000 ML IV SCH (18:19)
[2018-09-13] MEDS ORDERED: LORazepam 2 MG/ML VIAL IM/IVP PRN (18:20)
[2018-09-13] MEDS ORDERED: MORPHINE SULFATE 2 MG/ML SYR IVP PRN (18:20)
[2018-09-13] MEDS ORDERED: HYDROcodone/APAP 5/325 MG 1 TAB TAB PO PRN (18:20)
--- NOTE | 2018-09-13 18:20 | NUR ---
URINE COLLECTED AND SENT TO LAB
--- NOTE | 2018-09-13 18:20 | NUR ---
BP AT THIS TIME 75/32, PT REMAINS IN [place] POSITION
--- NOTE | 2018-09-13 18:21 | NUR ---
LOWERED O2 TO 10LPM DUE TO O2 SAT 100%
--- NOTE | 2018-09-13 18:28 | NUR ---
REQUESTED MED FOR TEMPERATURE 102.5, DR. LOPEZ WILL ORDER
[2018-09-13] MEDS ORDERED: ACETAMINOPHEN EXTRA STRENGTH 500 MG TAB PO ONE (18:30)
--- NOTE | 2018-09-13 18:33 | NUR ---
BP 83/34 AT THIS TIME, PT REMAINS IN [place] POSITION
--- NOTE | 2018-09-13 18:43 | NUR ---
BP 78/30 AT THIS TIME, PT REMAINS IN [place] POSITION
[2018-09-13 18:58] LABS: FREE T4 (FREE THYROXINE) 0.77 ng/dL (0.76-1.46); MAGNESIUM 3.1 mg/dL (1.8-2.4); THYROID STIMULATING HORMONE 3.6 uIU/mL (0.34-3.74)
[2018-09-13 19:09] LABS: APPEARANCE,URINE CLEAR (CLEAR); BILIRUBIN,URINE NEGATIVE (NEGATIVE); BLOOD, URINE NEGATIVE (NEGATIVE); COLOR,URINE YELLOW (YELLOW); LEUKOCYTE ESTERASE ,URINE NEGATIVE (NEGATIVE); NITRITE, URINE NEGATIVE (NEGATIVE); UGLUCOSE NEGATIVE (NEGATIVE)
[2018-09-13 19:14] LABS: BARBITURATE, URINE NEG. ng/ml (NEG <=200); BENZODIAZEPINE, URINE NEG. ng/mL (NEG <=200); CANNABINOID, URINE NEG. ng/mL (NEG <=50); COCAINE, URINE NEG. ng/mL (NEG <=300); OPIATE, URINE NEG. ng/mL (NEG <=2000); PHENCYCLIDINE SCREEN,URINE NEG. ng/mL (NEG <=25)
[2018-09-13 19:15] VITALS: BP 85/30
--- NOTE | 2018-09-13 19:15 | NUR ---
PT ARRIVED ON UNIT VIA GURNEY ESCORTED BY MICHELLE WALDEN ER NURSE TO ROOM 105A. REPORT GIVEN BY MICHELLE WALDEN AT BEDSIDE FOR CONTINUITY OF CARE, PT IN STABLE CONDITION.
--- NOTE | 2018-09-13 19:37 | NUR ---
Patient will be admitted to care of DR ALVARADO. Admited to TELEMETRY. Will go to room 105 A. Belongings list completed. Report to LEXY WALDEN.
--- NOTE | 2018-09-13 19:45 | NUR ---
PT IN LOW BED WITH SIDE RAILS UP X2. PT PLACED ON FALLS PRECAUTIONS DUE TO PT HAVING WEAKNESS WITH AMBULATION. PT V/S FOLLOWS T 98.5 P 106 R 20 B/P 85/30. 02 93% ON 6 LITERS VIA 02. PT WAS BROUGHT UP TO FLOOR WITH REBREATHER MASK AT 10LITERS. PT HAD AN EPISODE OF VOMITING, MASK WAS REMOVER QUICKLY AND PT TURNED TO THE SIDE. N/C PLACE ON PT AT 6 LITERS 02 WENT DOWN FROM 10 TO 93%. IV SITE 20G ON LEFT AC BOLUS FROM ER FINISHED AND PT PLACE ON N/S AT 120. DR. VILLAFANA MADE AWARE OF PT VOMITING AND PT BEING PLACED ON N/C SO THAT HE WONT ASPIRATE.
--- NOTE | 2018-09-13 20:30 | NUR ---
DR. WAGNER AT BEDSIDE EVALUATING PT. PT HAS CLEAR LUNGS AND BOWEL SOUNDS NOTED. ALL FALLS PRECAUTIONS OBSERVED.
--- NOTE | 2018-09-13 21:00 | NUR ---
PT HAD 1 EPISODE OF LOOSE STOOL, PT WAS TURNED AND CHANGED ALL FALLS PRECAUTIONS IN PLACE.
--- NOTE | 2018-09-13 22:30 | NUR ---
RT'S ATTEMPTED ABG BLOOD DRAW AND WAS UNABLE TO DO SO, DR. WAGNER MADE AWARE.
--- NOTE | 2018-09-13 23:00 | NUR ---
PT HAD ANOTHER EPISODE OF INCONTINENCE OF LOOSE STOOL AND URINE. PT TURNED AND CHANGED AND ALL FALLS PRECAUTIONS IN PLACE.
[2018-09-13] MEDS ORDERED: SODIUM PHOSPHATE 15 MMOLE in NACL 0.9% 250 ML IV ONE (23:20)
[2018-09-13] MEDS: ONDANSETRON 4 MG/2 ML VIAL IM/IVP PRN (23:30)
[2018-09-13] MEDS ORDERED: PATIROMER CALCIUM SORBITEX 8.4 GM PKT PO ONE (23:30)
--- NOTE | 2018-09-13 23:30 | NUR ---
LACTIC ACID DOWN TO 2.4
[2018-09-14] VITALS: BP 96/35
[2018-09-14] MEDS ORDERED: OLANZapine 5 MG TAB PO SCH
--- NOTE | 2018-09-14 | NUR ---
PT IN BED DR. WAGNER ORDERED FLUID TO BE INCREASED TO 150 DUE TO PT BEING DEHYDRATED. OTHER NOTED ORDERS ARE ZYPREXA, VELTASSA AND PHOSO MAX MEDS GIVEN PO. PT HAD NO TROUBLE SWALLOWING PILLS AND THIN LIQUIDS. V/S FOLLOWS T 98.7 P 98 R 18 B/P 96/35 02 100% WITH 5 LITERS VIA N/C.
[2018-09-14] MEDS: PIPER/TAZO 2.25GM/D5W PREMIX 50 ML IV SCH ×5 (00:36→23:36)
[2018-09-14] MEDS ORDERED: PIPERACILLIN/TAZOBACTAM 2.25 GM VIAL IV ONE ×2 (00:39→05:09)
[2018-09-14 00:52] LABS: ANION GAP 15.2 (8-16); CARBON DIOXIDE 21.7 mmol/L (21-32); POTASSIUM 5.9 mmol/L (3.5-5.1)
[2018-09-14] MEDS ORDERED: SODIUM PHOS / POTASSIUM PHOS 1 PKT PDR PO SCH (01:00)
--- NOTE | 2018-09-14 01:30 | NUR ---
PT TURNED AND CHANGED. N/C IN PLACE ALL FALLS PRECAUTIONS IN PLACE.
[2018-09-14 04:00] VITALS: BP 93/53
--- NOTE | 2018-09-14 04:30 | NUR ---
IV SITE FELL OUT WHILE PT WAS BEING TURNED AND CHANGED. CANNULA INTACT. NEW IV SITE PROVIDED ON RIGHT SIDE AC 20G AND FLUSHED PATENET. 02 WAS [id number] DOWN BY RT AND IS NOW 2LITERS. NO S/S OF PAIN OR DISTRESS NOTED.
[2018-09-14] MEDS: NACL 0.9% 1,000 ML IV SCH (05:14)
--- NOTE | 2018-09-14 05:30 | NUR ---
V/S FOLLOWS T 98.5 P 102 R 18 B/P 93/53 02 98% ON 2 LITERS VIA N/C. GHISLAINEN HUNG ORDERED.
--- NOTE | 2018-09-14 06:35 | NUR ---
PT WENT FOR CT OF ABDOMEN BY W/C.
--- NOTE | 2018-09-14 07:05 | NUR ---
PT RETURNED FORM CT OF ABDOMEN.
--- NOTE | 2018-09-14 07:20 | NUR ---
REPORT GIVEN TO NEAL RN DAYSHIFT NURSE AT BEDSIDE FOR CONTINUITY OF CARE, PT IN STABLE CONDITION.
[2018-09-14 08:00] VITALS: BP 90/51
[2018-09-14] MEDS ORDERED: SODIUM PHOSPHATE 15 MMOLE in NACL 0.9% 250 ML IV SCH (08:00)
--- NOTE | 2018-09-14 08:12 | NUR ---
RECEIVED REPORT FROM PM NURSE AT BEDSIDE. PT LYING ON HIS BED, AOX1-2. IS DEVELOPMENTALLY CHALLENGED. PT IS ON O2 2LPM VIA NC. PT HAD BM X2 ON PM SHIFT. SKIN IS INTACT. IVF 0.9 NS INFUSING AT 150 ML/HR, INFUSING WELL. PT IS BEDREST, INCONTINENT TO BOTH BOWL AND BLADDER. TEM 100.9. WILL MEDICATE WITH MEDS ORDERED. PT IS ON NPO EXCEPT MEDS. CALL LIGHT WITHIN PTS REACH. INFORMED TO USE CALL LIGHT FOR ANY HELP. WILL CONTINUE TO MONITOR PT.
--- NOTE | 2018-09-14 08:18 | NUR ---
PATIENT HAS BEEN SCREENED AND CATEGORIZED HIGH NUTRITION RISK. PATIENT WILL BE SEEN WITHIN 1-2 DAYS OF ADMISSION. 09/14/18-09/15/[address]
[2018-09-14 08:37] LABS: CARBON DIOXIDE 21.7 mmol/L (21-32); CREATININE 2.8 mg/dL (0.7-1.3)
[2018-09-14] MEDS: LACTOBACILLUS RHAMNOSUS GG 1 EACH CAP PO SCH (08:44)
[2018-09-14] MEDS: CHOLECALCIFEROL 1,000 IU TAB PO SCH (08:45)
[2018-09-14] MEDS: ACETAMINOPHEN 325 MG TAB PO PRN ×2 (08:45→21:09)
[2018-09-14 08:47] LABS: BASOPHILS % (AUTO) 0.1 % (0.0-2.0); HEMOGLOBIN 13.8 g/dL (12.0-18.0); LYMPHOCYTES # (AUTO) 0.5 K/uL (2.0-11.5); LYMPHOCYTES % (AUTO) 5.5 % (20.5-51.1); MEAN CORPUSCULAR HEMOGLOBIN 28 pg (27-31); MEAN CORPUSCULAR HGB CONC 33 g/dL (33-37); MEAN CORPUSCULAR VOLUME 85.7 fL (80-94); MONOCYTES # (AUTO) 0.3 K/uL (0.8-1.0); MONOCYTES % (AUTO) 3.5 % (1.7-9.3); NEUTROPHILS # (AUTO) 7.9 K/uL (1.8-7.7); NEUTROPHILS % (AUTO) 90.9 % (42.2-75.2); PLATELET COUNT (AUTO) 213 K/uL (140-450); RED CELL DISTRIBUTION WIDTH 14.2 % (11.6-13.7); WHITE BLOOD COUNT (AUTO) 8.7 K/uL (4.8-10.8)
[2018-09-14 08:49] LABS: ANION GAP 16.2 (8-16); POTASSIUM 5.9 mmol/L (3.5-5.1)
[2018-09-14 08:51] LABS: CHOL/HDL RATIO 1.4 (1-4.5); MAGNESIUM 2.6 mg/dL (1.8-2.4); PHOSPHORUS 2.7 mg/dL (2.5-4.9)
[2018-09-14 12:00] VITALS: BP 129/56
[2018-09-14] MEDS ORDERED: PATIROMER CALCIUM SORBITEX 8.4 GM PKT PO SCH ×2 (14:15)
[2018-09-14 16:00] VITALS: BP 90/55
--- NOTE | 2018-09-14 16:30 | NUR ---
CHECKED ON PT. HAS TEM 100.9. ADMINISTERED TYLENOL TO PT ORDERED. PT STILL NPO. WILL CONTINUE TO MONITOR PT.
--- NOTE | 2018-09-14 17:44 | NUR ---
CONTACTED JOSE FROM [facility], JOSE STATED PT IS NOT CONSERVED AND CAN SIGN HIS OWN CONSENT FOR PROCEDURE. NEAL-RN NURSE ASSIGNED AND DR. MEYER MADE AWARE.
[2018-09-14 18:37] LABS: ANION GAP 14.4 (8-16); CARBON DIOXIDE 22.9 mmol/L (21-32); CREATININE 3.4 mg/dL (0.7-1.3); POTASSIUM 5.3 mmol/L (3.5-5.1)
--- NOTE | 2018-09-14 18:47 | NUR ---
SCREEN FOR LOW CODI SCALE: SKIN INTACT RECOMMENDATION FOLLOW: -OFFLOAD BILATERAL HEELS BY PLACING PILLOWS UNDER CALVES UNLESS OTHERWISE CONTRAINDICATED -TURN AND REPOSITION Q2H, OFFLOAD SACRALCOCCYX AND BUTTOCKS BY TURNING RIGHT AND LEFT -CONTINUE TO FOLLOW RD RECOMMENDATIONS
--- NOTE | 2018-09-14 19:20 | NUR ---
ENDORSED PT TO PM NURSE AT BEDSIDE. PT IN STABLE CONDITION. PT TO GET THE CONSENT REGARDING THE PROCEDURE BY DR. CHANG. PM NURSE AWARE. TRIED INSERTING NG TUBE, COULD NOT PLACE PT GO T DISTRESSED, STATING THAT HE IS FEELING SOB. INSERTED MCDANIELS CATHETER PER ORDER. PT STABLE AT THIS TIME.
--- NOTE | 2018-09-14 19:21 | NUR ---
REPORT RECEIVED BY NIKOS NURSENEAL. PT IN BED, AWAKE, ALERT AND ORIENTED. TELE PT. PT RT AC 20G INTACT AND INFUSING WELL. PT ON 2L O2 N.C. PT MCDANIELS IN PLACE. SAFETY PRECAUTIONS IN PLACE, YELLOW GOWN AND SOCKS, BED IN LOW POSITION. CALL LIGHT WITH IN REACH. BILATERAL SCD MACHINE IN PLACE AND ON. WILL CONTINUE TO MONITOR.
[2018-09-14] MEDS: ALBUTEROL SULFATE/IPRATROPIU 3 ML SOL IH PRN (19:56)
--- NOTE | 2018-09-14 20:00 | NUR ---
PT REFUSED TO HAVE NGT INSERTED. WILL TRY AGAIN LATER.
[2018-09-14 20:04] VITALS: BP 82/46
[2018-09-14] MEDS: OLANZapine 5 MG TAB PO SCH (21:06)
[2018-09-14] MEDS: SODIUM BICARBONATE 8.4% 150 MEQ in DEXTROSE 5% 1,000 ML IV SCH ×2 (22:10→22:56)
--- NOTE | 2018-09-14 22:30 | NUR ---
TRIED TO INSERT NGT AGAIN BUT PT REFUSED. IRAM PUGH CHARGE AWARE.
--- NOTE | 2018-09-14 23:55 | NUR ---
PT ABLE TO SIGN CONSENT FOR THE PROCEDURE TO BE DONE BY DR. CHANG. WILL KEEP PT NPO.
[2018-09-15] VITALS: BP 90/48
--- NOTE | 2018-09-15 | NUR ---
PT BP ON LOW SIDE 82/[address] ROSADO ORDERED TO GIVE NS 500ML BOLUS. LATEST BP 90/48. PT IS AAO X2-3. ASYMPTOMATIC.
--- NOTE | 2018-09-15 01:00 | NUR ---
ALONZO BARBOZA,RESIDENT, MADE AWARE THAT PT REFUSED TO HAVE THE NGT INSERTED.
--- NOTE | 2018-09-15 02:00 | NUR ---
CASE ROUNDS. PT STILL AWAKE, REPOSITIONED FOR COMFORT. O22L/NC ON. NO DISTRESS NOTED. WILL CONTINUE TO MONITOR.
[2018-09-15 04:00] VITALS: BP 102/58
--- NOTE | 2018-09-15 04:15 | NUR ---
LATEST BP THIS AM 102/58. WITH TEMP 100.5 TO GIVE TYLENOL PO WITH SIPS OF WATER.
[2018-09-15] MEDS: ACETAMINOPHEN 325 MG TAB PO PRN (04:56)
[2018-09-15] MEDS: PIPER/TAZO 2.25GM/D5W PREMIX 50 ML IV SCH ×4 (06:07→23:54)
[2018-09-15 06:16] LABS: BASOPHILS % (AUTO) 0.1 % (0.0-2.0); HEMATOCRIT 35.3 % (36-52); HEMOGLOBIN 11.6 g/dL (12.0-18.0); LYMPHOCYTES # (AUTO) 0.7 K/uL (2.0-11.5); LYMPHOCYTES % (AUTO) 8.4 % (20.5-51.1); MEAN CORPUSCULAR HEMOGLOBIN 28 pg (27-31); MEAN CORPUSCULAR HGB CONC 33 g/dL (33-37); MEAN CORPUSCULAR VOLUME 85.3 fL (80-94); MONOCYTES # (AUTO) 0.5 K/uL (0.8-1.0); MONOCYTES % (AUTO) 6.7 % (1.7-9.3); NEUTROPHILS # (AUTO) 6.7 K/uL (1.8-7.7); NEUTROPHILS % (AUTO) 84.8 % (42.2-75.2); PLATELET COUNT (AUTO) 183 K/uL (140-450); RED BLOOD CELL COUNT(AUTO) 4.13 MIL/uL (4.20-6.10); WHITE BLOOD COUNT (AUTO) 7.9 K/uL (4.8-10.8)
--- NOTE | 2018-09-15 06:17 | NUR ---
PAGED DR. CHANG REGARDING PT REFUSAL TO HAVE NGT INSERTED . CALLED BACK AND MADE AWARE.NO NEW ORDER MADE.
[2018-09-15 06:52] LABS: ANION GAP 16.1 (8-16); CARBON DIOXIDE 23.3 mmol/L (21-32); CREATININE 3.2 mg/dL (0.7-1.3); PHOSPHORUS 5.3 mg/dL (2.5-4.9); POTASSIUM 4.4 mmol/L (3.5-5.1)
--- NOTE | 2018-09-15 07:00 | NUR ---
ENDORSED PT TO AM NURSE, NEAL. PT IN STABLE CONDITION.
--- NOTE | 2018-09-15 07:01 | NUR ---
RECEIVED REPORT FROM PM NURSE AT BEDSIDE. PT LYING ON HIS BED. PER PM NURSE , PT REFUSED NGT TWICE LAST NIGHT. OR NURSE AT BEDSIDE, PT WENT TO OR FRO THE PROCEDURE.
[2018-09-15 07:20] LABS: MAGNESIUM 2.5 mg/dL (1.8-2.4)
[2018-09-15] MEDS ORDERED: HYDROmorphone 1 MG/ML AMP IVP PRN (07:45)
[2018-09-15] MEDS ORDERED: ONDANSETRON 4 MG/2 ML VIAL IVP PRN (07:45)
[2018-09-15] MEDS ORDERED: KETAMINE 500 MG/5 ML VIAL ONE (07:46)
[2018-09-15] MEDS ORDERED: BISACODYL 5 MG TABEC PO PRN (08:10)
--- NOTE | 2018-09-15 08:50 | NUR ---
PT BACK FROM OR. RECEIVED KETAMINE AT OR, HAD FECAL DISIMPACTION BY DR CHANG. PT VS RECORDED RR 24, HR 113, BP 121/10, O2 89% ON 3LPM O2 VIA NC, BP 121/100. PT DENIES ANY PAIN AT THIS TIME. WILL CONTINUE TO MONITOR PT . DR GOMEZ AT THE BEDSIDE, STATES TO STOP FLUID TO THE PT.
[2018-09-15 09:00] VITALS: BP 121/100
[2018-09-15] MEDS: LACTOBACILLUS RHAMNOSUS GG 1 EACH CAP PO SCH (09:44)
[2018-09-15] MEDS: FUROSEMIDE 40 MG TAB PO SCH (09:44)
[2018-09-15] MEDS: CHOLECALCIFEROL 1,000 IU TAB PO SCH (09:44)
--- NOTE | 2018-09-15 09:53 | NUR ---
ADMINISTERED MEDS TO PT ORDERED. PT ON O2 6LPM VIA SIMPLE MASK, O2 SAT 94%. PT DENIES ANY DISTRESS OR PAIN. TOOK HIS MEDS WELL. TOLERATED WELL. PT ON CONTINUOS O2 SAT MONITORING. WILL CONTINUE TO MONITOR PT.
--- NOTE | 2018-09-15 11:31 | NUR ---
ADMINISTERED ZOSYN [id number]. PT ON O2 6LPM VIA SIMPLE MASK. O2 SAT 99%. DENIES ANY PAIN OR DISCOMFORT. INFORMED HIM TO USE CALL LIGHT FOR ANY HELP. INFORMED HIM PUT MASK ON, WITHOUT MASK PT SAT DECREASES BELOW 90%. WILL CONTINUE TO MONITOR PT.
[2018-09-15 12:00] VITALS: BP 97/59
--- NOTE | 2018-09-15 13:41 | NUR ---
CHECKED ON PT. LYING ON HIS BED COMFORTABLY. PT ON SIMPLE OXYGEN MASK, 6LPM. SAT 95%. REORIENTED PT NOT TO TAKE THE MASK , WITHOUT MASK PT O2 SAT DROPS TO 85%. WILL CONTINUE TO MONITOR PT.
--- NOTE | 2018-09-15 15:44 | NUR ---
09/15/18 RD INITIAL ASSESSMENT COMPLETED PLEASE REFER TO NUTRITION ASSESSMENT UNDER CARE ACTIVITY FOR ESTIMATED NUTRITIONAL NEEDS. 1. CONTINUE DIET FULL LIQUID DIET TOLERATED 2. ADVANCE DIET TO REGULAR WHEN PT IS MEDICALLY STABLE TO RECEIVE NUTRITION 3. HIGH FIBER NUTRITION EDUCATION WAS GIVEN 4. RD TO FOLLOW-UP 3-5 DAYS, MODERATE RISK KAREN CONNER RD
[2018-09-15 16:00] VITALS: BP 96/75
[2018-09-15] MEDS ORDERED: SODIUM PHOSPHATE 118 ML ENEM RC SCH (16:00)
--- NOTE | 2018-09-15 16:10 | NUR ---
ADMINISTERED MEDS TO PT ORDERED. GAVE THE FLEET ENEMA TO THE PT. WILL CONTINUE TO MONITOR PT.
--- NOTE | 2018-09-15 19:05 | NUR ---
ENDORSED PT TO PM NURSE AT THE BEDSIDE. PT IN STABLE CONDITION.
--- NOTE | 2018-09-15 19:06 | NUR ---
REPORT RECEIVED FROM AM NURSENEAL. PT SITTING IN BED, AWAKE, ALERT AND ORIENTED. RT 20G AC INTACT. PT ON 6L O2 VIA SIMPLE MASK, ON CONTINUOUS PULSE OX. MCDANIELS IN PLACE. SCDS IN PLACE. SAFETY PRECAUTIONS IN PLACE, YELLOW GOWN, YELLOW SOCKS, YELLOW ARM BAND AND BED IN LOW POSITION. CALL LIGHT WITHIN REACH. WILL CONTINUE TO MONITOR.
[2018-09-15 19:58] VITALS: BP 108/61
--- NOTE | 2018-09-15 20:30 | NUR ---
PT ON O2 6L BY SIMPLE MASK. O2 SAT 95%. REPOSITIONED FOR COMFORT. NO C/O ANY PAIN NOTED.
[2018-09-15] MEDS: OLANZapine 5 MG TAB PO SCH (20:38)
--- NOTE | 2018-09-15 22:53 | NUR ---
INFORMED MD ABOUT CXR RESULTS. INSTRUCTED TO CALL RT FOR BREATHING TX.
[2018-09-15] MEDS: ALBUTEROL SULFATE/IPRATROPIU 3 ML SOL IH PRN (23:01)
[2018-09-16] VITALS: BP 118/71
--- NOTE | 2018-09-16 | NUR ---
PT SLEEPING IN BED BUT EASILY AROUSABLE. NO C/O DISCOMFORT. PT CONNECTED TO CONTINUOUS PULSE OX. PT ON 6L O2 SIMPLE MASK. PT REPOSITIONED. ALL NEEDS ATTENDED TO. WILL CONTINUE TO MONITOR.
--- NOTE | 2018-09-16 02:30 | NUR ---
ROUNDED ON PT, AWAKE IN BED WATCHING TV. NO C/O DISCOMFORT. NO VISIBLE SIGNS OF DISTRESS. PT CONNECTED TO CONTINUOUS PULSE OX 98%. 6L O2 SIMPLE MASK IN PLACE. SAFETY PRECAUTIONS IN PLACE, BED IN LOW POSITION. CALL LIGHT WITH IN REACH. ALL NEEDS ATTENDED TO. WILL CONTINUE TO MONITOR.
[2018-09-16 04:00] VITALS: BP 120/67
--- NOTE | 2018-09-16 04:15 | NUR ---
REPOSITIONED PT FOR COMFORT WITH HOB ELEVATED 30 DEGREES . O2 AT 6L SIMPLE MASK SAT 97%.
[2018-09-16] MEDS: PIPER/TAZO 2.25GM/D5W PREMIX 50 ML IV SCH ×4 (05:36→23:45)
--- NOTE | 2018-09-16 06:00 | NUR ---
PT HAD LARGE LIQUID BM. CLEANED AND KEPT DRY. REPOSITIONED FOR COMFORT.
[2018-09-16 06:42] LABS: EOSINOPHILS % (AUTO) 0.1 % (0.0-4.0); HEMATOCRIT 34.9 % (36-52); HEMOGLOBIN 11.5 g/dL (12.0-18.0); LYMPHOCYTES # (AUTO) 0.6 K/uL (2.0-11.5); LYMPHOCYTES % (AUTO) 6.8 % (20.5-51.1); MEAN CORPUSCULAR HEMOGLOBIN 28 pg (27-31); MEAN CORPUSCULAR HGB CONC 33 g/dL (33-37); MEAN CORPUSCULAR VOLUME 84.8 fL (80-94); MONOCYTES # (AUTO) 0.7 K/uL (0.8-1.0); MONOCYTES % (AUTO) 8.1 % (1.7-9.3); PLATELET COUNT (AUTO) 191 K/uL (140-450); RED BLOOD CELL COUNT(AUTO) 4.12 MIL/uL (4.20-6.10); RED CELL DISTRIBUTION WIDTH 14.2 % (11.6-13.7); WHITE BLOOD COUNT (AUTO) 8.2 K/uL (4.8-10.8)
--- NOTE | 2018-09-16 07:05 | NUR ---
ENDORSED TO AM NURSE. PT IN STABLE CONDITION.
--- NOTE | 2018-09-16 07:06 | NUR ---
RECEIVED BEDSIDE REPORT FROM INSTRUCTIONAL SPECIALIST NURSE. PATIENT ON TELE MONITOR AND STANDARD PRECAUTIONS IN PLACE. PATIENT AAOX2 AND ON SIMPLE MASK AT 6 L, NO DISTRESS NOTED. PATIENT BEDREST AND SKIN INTACT. FALL RISK PROTOCOL IN PLACE. IV ON L AC 20 G INFUSING NS TKO, IV ASYMPTOMATIC PATENT AND INTACT. MCDANIELS CATHETER IN PLACE INSERTED ON 09/14/18. BED IN LOW POSITION, CALL LIGHT WITHIN REACH, SIDE RAILS X2 UP
[2018-09-16 07:15] LABS: ANION GAP 16.6 (8-16); CARBON DIOXIDE 24.3 mmol/L (21-32); CREATININE 2.8 mg/dL (0.7-1.3); POTASSIUM 3.9 mmol/L (3.5-5.1)
[2018-09-16 07:17] LABS: MAGNESIUM 2.8 mg/dL (1.8-2.4); PHOSPHORUS 5.4 mg/dL (2.5-4.9)
[2018-09-16 08:00] VITALS: BP 147/108
[2018-09-16] MEDS ORDERED: SODIUM PHOSPHATE 118 ML ENEM RC SCH (09:00)
[2018-09-16] MEDS: DOCUSATE SODIUM 100 MG GELCAP PO SCH (09:33)
[2018-09-16] MEDS: FUROSEMIDE 40 MG TAB PO SCH (09:34)
[2018-09-16] MEDS: LACTOBACILLUS RHAMNOSUS GG 1 EACH CAP PO SCH (09:34)
[2018-09-16] MEDS: BISACODYL 5 MG TABEC PO SCH ×2 (09:34→20:40)
[2018-09-16] MEDS: CHOLECALCIFEROL 1,000 IU TAB PO SCH (09:35)
--- NOTE | 2018-09-16 10:13 | NUR ---
CARETAKERS AT BEDSIDE, ANSWERED ALL QUESTIONS AND CONCERNS. MEDS ADMINISTERED, PATIENT TOLERATED WELL
--- NOTE | 2018-09-16 11:29 | NUR ---
PATIENT REPOSITIONED TO L SIDE LYING POSITION, HAD LARGE BM
[2018-09-16 12:00] VITALS: BP 106/69
--- NOTE | 2018-09-16 13:49 | NUR ---
PATIENT WATCHING TV, ON 6L O2 NC, NO DISTRESS NOTED
--- NOTE | 2018-09-16 15:18 | NUR ---
PATIENT WATCHING TV, ON 6L O2 NC, NO DISTRESS NOTED
--- NOTE | 2018-09-16 15:30 | NUR ---
SCREEN FOR LOW CODI SCALE AT RISK, NO REDNESS NOTICE, PRESSURE ULCER PREVENTION INTERVENTIONS IN PLACE. -TURN AND REPOSITION PATIENT Q 2H OFFLOAD SACRALCOCCYX -ASSESS AND MONITOR SKIN CONDITION DURING POSITION CHANGE, PLEASE PAY ATTENTION TO FEET AND HEELS -OFFLOAD BILATERAL HEELS BY PLACING PILLOWS UNDER CALVES AT ALL TIMES, UNLESS OTHERWISE CONTRAINDICATED -KEEP SKIN CLEAN AND DRY AT ALL TIMES.
[2018-09-16 16:00] VITALS: BP 126/87
--- NOTE | 2018-09-16 17:15 | NUR ---
ADMINISTERED SCHEDULED MEDS. PATIENT TOLERATED WELL. PATIENT NOW ON 4 L O2 NC, NO DISTRESS NOTED, SAO2 95%
--- NOTE | 2018-09-16 19:10 | NUR ---
BEDSIDE REPORT GIVEN TO IRAM KERN. PATIENT ENDORSED IN STABLE CONDITION
[2018-09-16 20:00] VITALS: BP 137/89
--- NOTE | 2018-09-16 20:00 | NUR ---
SEEN PT AWAKE, ALERT AND ORIENTEDX3-4. INITIAL ASSESSMENT DONE. PT APPEARS TO BE BREATHING FAST BUT DENIES SHORTNESS OF BREATH. VITAL SIGNS CHECKED. O2SAT 93% ON 4L VIA NC. WILL CONTINUE TO MONITOR. SHDM=178.6 WILL GIVE TYLENOL PRN ORDERED. PT HAD BM. SUPERVISOR OF WAY HERE TO CLEAN PT. SAFETY REINFORCED. CALL LIGHT W/IN REACH.
[2018-09-16] MEDS: OLANZapine 5 MG TAB PO SCH (20:40)
[2018-09-16] MEDS: ACETAMINOPHEN 325 MG TAB PO PRN (20:40)
--- NOTE | 2018-09-16 20:40 | NUR ---
PT DENIES ANY SHORTNESS OF BREATH. O2SAT 93% ON 4L NC. PT'S HEAD OF THE BED ELEVATED. PT GIVEN TYLENOL PRN FOR TEMP OF 100.6 COOLING MEASURE WAS PROVIDED EARLIER. OTHER DUE MEDICATIONS GIVEN. PT TOOK PILLS ONE BY ONE. PT TOLERATED MEDICATIONS WELL. PT DENIES ANY NEEDS. WILL CALL RT FOR BREATHING TREATMENT. CALL LIGHT W/IN REACH.
[2018-09-16] MEDS: ALBUTEROL SULFATE/IPRATROPIU 3 ML SOL IH SCH ×2 (21:05→21:09)
--- NOTE | 2018-09-16 23:45 | NUR ---
SEEN PT AWAKE. IV ANTIBIOTIC GIVEN ORDERED. TEACHINGS PROVIDED. PT SAID "OK". PT DENIES ANY SHORTNESS OF BREATH. WILL CONTINUE TO MONITOR. CALL LIGHT W/IN REACH.
[2018-09-17] VITALS: BP 133/84
--- NOTE | 2018-09-17 00:35 | NUR ---
PER ELECTRIC CAR OPERATOR, PT HAD BM AND SHE SAID SHE REPOSITIONED THE PT.
--- NOTE | 2018-09-17 02:20 | NUR ---
SEEN PT STILL AWAKE, TALKING TO HIMSELF. ASKED PT IF HE'S NOT SLEEPY YET. PT SAID "I AM BUT CONTINUES TO TALK TO HIMSELF. PT DENIES ANY SHORTNESS OF BREATH AND PAIN. PT REPOSITIONED FOR COMFORT. O2SAT 95% ON 4L VIA NASAL CANNULA. CALL LIGHT W/IN REACH. WILL CONTINUE TO MONITOR.
[2018-09-17 04:00] VITALS: BP 123/88
--- NOTE | 2018-09-17 04:10 | NUR ---
SEEN PT AWAKE. VITAL SIGNS CHECKED AND W/IN NORMAL. PT HAD MODERATE AMOUNT OF BROWN, PASTY STOOL. AM CARE RENDERED. PT REPOSITIONED COMFORTABLY. PT DENIES ANY SHORTNESS OF BREATH OR DISCOMFORT. CALL LIGHT W/IN REACH. WILL CONTINUE TO MONITOR.
--- NOTE | 2018-09-17 04:20 | NUR ---
PT APPEARS TO HAVE A BUMP ON LOWER ABDOMEN. ASKED PT IF IT HURTS WHEN PRESSED. PT DENIES ANY DISCOMFORT. MCDANIELS W/ ADEQUATE URINE. WILL CONTINUE TO MONITOR.
--- NOTE | 2018-09-17 05:05 | NUR ---
REPORT GIVEN TO MILLICENT FOR CONTINUITY OF CARE.
--- NOTE | 2018-09-17 05:06 | NUR ---
RECD. RESTING IN BED, AWAKE, A/OX3, RESPIRATION EVEN AND UNLABORED. ON 02 AT 4 LITERS VIA N/C, 02 SAT - 92% ENCOURAGE TO TAKE DEEP BREATHS. IV OF NS AT TKO INFUSING, RIGHT AC G20. OF/C PATENT DRAINING CLEAR YELLOW URINE. ON BILATERAL LEG SEQUENTIALS. DENIES PAIN 0/10.
[2018-09-17] MEDS: PIPER/TAZO 2.25GM/D5W PREMIX 50 ML IV SCH ×3 (06:15→17:17)
--- NOTE | 2018-09-17 06:42 | NUR ---
STILL AWAKE IN BED, MURMURING WORDS TO SELF. RESPIRATORY STATUS REMAIN STABLE. WILL ENDORSE TO AM NURSE FOR CONTINUITY OF CARE.
--- NOTE | 2018-09-17 07:35 | NUR ---
RECEIVED PT FROM MACHINE BINDING FOLDER NURSEMILLICENT, PT IS AWAKE AND BEING CLEANED BY PROJECT PORTFOLIO ANALYST, WITH O2 AT 4L NC IN PLACE, FALL AND SAFETY PRECAUTION ENFORCED, SIDE RAILS ARE UP AND CALL LIGHT WITHIN REACH, PT'S RESPIRATION IS NOT EVEN, GASPING AT A RATE OF 26/MIN, NO OTHER UNTOWARD SYMPTOM NOTED. WILL INFORM MD AND RT TO ASSESS BREATHING. PT HAS AN IV LINE ON THE RT AC G.20 WITH NS AT TKO, INFUSING. WILL CONTINUE TO MONITOR PT.
--- NOTE | 2018-09-17 07:40 | NUR ---
INFORMED RT, OLU OF THE PT'S BREATHING AND RT SAID THAT SHE WILL GIVE BREATHING TREATMENT AND WILL ASSESS PT'S BREATHING. WILL FOLLOW UP ON PT.
--- NOTE | 2018-09-17 07:50 | NUR ---
RT, OLU SAID THAT SHE GAVE AND ASSESSED PT'S BREATHING AND PT IS SATURATING AT 94% NOW, RT INCREASED O2 LEVEL TO 6L VIA NC. WILL MONITOR PT.
[2018-09-17] MEDS: ALBUTEROL SULFATE/IPRATROPIU 3 ML SOL IH SCH ×3 (07:54→20:00)
[2018-09-17 07:55] LABS: BASOPHILS % (AUTO) 0.1 % (0.0-2.0); EOSINOPHILS # (AUTO) 0.1 K/uL (0-0.4); EOSINOPHILS % (AUTO) 0.5 % (0.0-4.0); HEMATOCRIT 36.2 % (36-52); HEMOGLOBIN 11.9 g/dL (12.0-18.0); LYMPHOCYTES % (AUTO) 8.6 % (20.5-51.1); MEAN CORPUSCULAR HEMOGLOBIN 28 pg (27-31); MEAN CORPUSCULAR HGB CONC 33 g/dL (33-37); MEAN CORPUSCULAR VOLUME 84.9 fL (80-94); MONOCYTES # (AUTO) 0.7 K/uL (0.8-1.0); MONOCYTES % (AUTO) 5.9 % (1.7-9.3); NEUTROPHILS # (AUTO) 9.8 K/uL (1.8-7.7); NEUTROPHILS % (AUTO) 84.9 % (42.2-75.2); PLATELET COUNT (AUTO) 235 K/uL (140-450); RED BLOOD CELL COUNT(AUTO) 4.26 MIL/uL (4.20-6.10); RED CELL DISTRIBUTION WIDTH 14.9 % (11.6-13.7); WHITE BLOOD COUNT (AUTO) 11.5 K/uL (4.8-10.8)
[2018-09-17 08:00] VITALS: BP 111/87
[2018-09-17 08:03] LABS: ANION GAP 14.2 (8-16); CARBON DIOXIDE 23.9 mmol/L (21-32); CREATININE 2.2 mg/dL (0.7-1.3); POTASSIUM 3.1 mmol/L (3.5-5.1)
--- NOTE | 2018-09-17 08:07 | NUR ---
PT ON 4L NC, SPO2 93-94%, INCREASED WOB, INCREASED O2 TO 6L NC, PT SPO2 96% Addendum: 09/17/18 at 0809 by Julia Kendall RT RN AWARE
[2018-09-17 08:14] LABS: MAGNESIUM 2.4 mg/dL (1.8-2.4); PHOSPHORUS 3.6 mg/dL (2.5-4.9)
[2018-09-17] MEDS: CHOLECALCIFEROL 1,000 IU TAB PO SCH (08:32)
[2018-09-17] MEDS: DOCUSATE SODIUM 100 MG GELCAP PO SCH (08:33)
[2018-09-17] MEDS: LACTOBACILLUS RHAMNOSUS GG 1 EACH CAP PO SCH (08:34)
[2018-09-17] MEDS: FUROSEMIDE 40 MG TAB PO SCH (08:34)
[2018-09-17] MEDS: BISACODYL 5 MG TABEC PO SCH ×2 (08:42→21:40)
--- NOTE | 2018-09-17 08:49 | NUR ---
PT IS AWAKE AND VITAL SIGNS CHECKED DONE, BP IS 139/93, PULSE IS 105, O2 SATURATION IS 93%, ORAL MEDICATIONS WERE GIVEN TO PT, CRUSHED, PT TOLERATED IT. NO SIGN OF DISTRESS NOTED AND WILL MONITOR PT.
[2018-09-17] MEDS: ONDANSETRON 4 MG/2 ML VIAL IM/IVP PRN (09:54)
[2018-09-17] MEDS ORDERED: POTASSIUM CHLORIDE 40 MEQ, LIDOCAINE 1% 25 MG in NACL 0.9% 250 ML IV SCH (10:00)
--- NOTE | 2018-09-17 10:32 | NUR ---
Clinicals faxed to [facility] .
[2018-09-17] MEDS: DEXT 5% /NACL 0.9% 1,000 ML IV SCH (11:10)
[2018-09-17 12:00] VITALS: BP 142/83
--- NOTE | 2018-09-17 12:12 | NUR ---
PT IS HAVING X-RAY NOW.
--- NOTE | 2018-09-17 12:25 | NUR ---
PT IS AWAKE AND VITAL SIGNS TAKEN, BP IS 142/83, PULSE IS 110, TEMPERATURE IS 98.6, O2 SATURATION IS 94%, RESPIRATION IS 22/MIN, IV MEDICATION WAS GIVEN AND PT TOLERATED IT. WILL MONITOR PT.
--- NOTE | 2018-09-17 13:50 | NUR ---
PT WAS CLEANED AND REPOSITIONED AND MADE COMFORTABLE, NO SIGN OF DISTRESS NOTED. WILL MONITOR PT.
--- NOTE | 2018-09-17 13:55 | NUR ---
PT IS HJAVING A BREATHING TREATMENT RIGHT NOW, RT ON THE BEDSIDE.
--- NOTE | 2018-09-17 14:01 | NUR ---
Spoke with Rao Admission Coordinator from [facility], pt will be going to room 127 C under the care of Dr. Healy. For transportation call [facility] and inform them Rao will give them the AUTH for transportation and send the bill to [facility].
--- NOTE | 2018-09-17 15:29 | NUR ---
Spoke with Kim WALDEN to call [facility] for transportation and bill to [facility] per [place] admission coordinator . Pt's room number 127 C [facility] [address] [phone]aly. Pt's discharge still pending at this time.
--- NOTE | 2018-09-17 15:46 | NUR ---
Spoke with Dr. Yao pt will be discharge tomorrow. Informed Rao from [facility] that pt will be discharge tomorrow.
[2018-09-17 16:00] VITALS: BP 144/90
--- NOTE | 2018-09-17 17:20 | NUR ---
PATIENT SITTING IN BED WATCHING TV. NO DISTRESS NOTED. DENIES ANY PAIN. NO NAUSEA/VOMITING AT THIS TIME. SCHEDULED MEDICATIONS DUE GIVEN. WILL CONTINUE TO MONITOR.
--- NOTE | 2018-09-17 19:06 | NUR ---
GAVE REPORT TO PRODUCT HANDLER NURSE FOR CONTINUITY OF CARE. PATIENT IN STABLE CONDITION.
--- NOTE | 2018-09-17 19:07 | NUR ---
RECEIVED BEDSIDE REPORT FROM DAY SHIFT NURSE. PT IS AWAKE WITH O2 AT 6L NC. FALL AND SAFETY PRECAUTION ENFORCED, SIDE RAILS ARE UP AND CALL LIGHT WITHIN REACH, PT'S RESPIRATION IS NOT EVEN, RESPIRATORY RATE OF 26/MIN, WILL INFORM MD AND RT TO ASSESS BREATHING. SKIN INTACT, WARM AND DRY. IV LINE ON THE RT AC 20G WITH D5NS AT 60MLS/HR, PATENT, INTACT, AND ASYMPTOMATIC. WILL CONTINUE TO MONITOR.
[2018-09-17 20:00] VITALS: BP 118/72
--- NOTE | 2018-09-17 20:00 | NUR ---
ASSISTED NUCLEAR MED TECH AND RN TO TRANSPORT PATIENT OFF THE UNIT FOR NUCLEAR MED PROCEDURE. NO RESPIRATORY DISTRESS NOTED DURING TRANSPORT. PATIENT ON 6L NASAL CANULA. SCHEDULED BREATHING TREATMENT NOT ADMINISTERED AT THIS TIME DUE TO PATIENT BEING IN PROCEDURE. RN AWARE. WILL ASSESS AND TREAT PATIENT ACCORDINGLY UPON ARRIVAL BACK TO THE UNIT.
--- NOTE | 2018-09-17 20:00 | NUR ---
ASSISTED NUCLEAR MED TECH AND RT TO TRANSPORT PATIENT OFF THE UNIT FOR NUCLEAR MED PROCEDURE. PATIENT ON 6L NASAL CANULA. PT HAD BM, CHANGED PT. NO DISCOMFORT NOTED DURING TRANSPORTING.
[2018-09-17] MEDS: OLANZapine 5 MG TAB PO SCH (21:39)
--- NOTE | 2018-09-17 21:46 | NUR ---
GIVEN ALL SCHEDULE MEDS ORDERED. PT TOLERATED WELL. WILL CONTINUE TO MONITOR.
[2018-09-17] MEDS: ALBUTEROL SULFATE/IPRATROPIU 3 ML SOL IH PRN (23:09)
--- NOTE | 2018-09-17 23:19 | NUR ---
TITRATED OXYGEN TO 4L NC. PULSE OX SAT 94%. BREATHING TREATMENT ADMINISTERED. TOLERATED WELL WITHOUT ADVERSE SIDE EFFECTS. DEEP COUGH EXERCISES PERFORMED. NO RESPIRATORY DISTRESS NOTED. WILL CONTINUE TO MONITOR.
[2018-09-18] VITALS (13 sets, daily range): BP systolic 109–149; BP diastolic 59–88
[2018-09-18] MEDS: PIPER/TAZO 2.25GM/D5W PREMIX 50 ML IV SCH ×4 (00:08→18:05)
--- NOTE | 2018-09-18 00:08 | NUR ---
GIVEN ZOSYN DRDilshad ORDERED. PT TOLERATED WELL. CHECKED VS. WITHIN PT'S BASELINE. BED IN LOW POSITION AND CALL LIGHT WITHIN REACH. WILL CONTINUE TO MONITOR.
--- NOTE | 2018-09-18 02:05 | NUR ---
PT AWAKE IN BED. RESPIRATORY RATE 24/MIN WITH O2 6LPM NC. BREATHING USING MUSCLE. DENIED PAIN. BED IN LOW POSITION. CALL LIGHT WITHIN REACH. WILL CONTINUE TO MONITOR.
[2018-09-18] MEDS: DEXT 5% /NACL 0.9% 1,000 ML IV SCH ×2 (03:50→17:19)
--- NOTE | 2018-09-18 04:45 | NUR ---
PT AWAKE. RESPIRATORY RATE 22/M. PROVIDED MCDANIELS CATHETER CARE. PT TOLERATED WELL. WILL CONTINUE TO MONITOR.
--- NOTE | 2018-09-18 05:45 | NUR ---
PT BEING TAKEN X-RAY. DR. ARCHIBALD AT PT ROOM, REPORT PT CONDITION. PT IN STABLE CONDITION.
--- NOTE | 2018-09-18 07:13 | NUR ---
ENDORSED PT TO DAY SHIFT NURSE. PT IN STABLE CONDITION.
--- NOTE | 2018-09-18 07:15 | NUR ---
RECEIVED BEDSIDE REPORT FROM WELDER FITTER GAS NURSE FOR CONTINUITY OF CARE. PATIENT IS AOX1 TO NAME. PATIENT IS TALKING TO THE AIR. WHEN I ASKED HIM WHO IS HE TALKING TO? PATIENT SAID, " I AM TALKING TO MY FRIEND BARRERA." HE WAS POINT AT THE AIR. REORIENTED PATIENT THAT THERE IS NO BARRERA IN ROOM AND HE IS IN THE [facility]. PATIENT IS ABLE TO FOLLOW SIMPLE COMMANDS. RESPIRATION IS EVEN AND UNLABORED. PATIENT IS ON 4LPM VIA NC AND O2 SATURATION IS AT 96% AT THIS TIME. IV ON RAC 20G, INTACT AND CLEAN, INFUSING PER MD ORDER. SKIN CLEAN AND INTACT. ABDOMEN IS DISTENDED AND ROUND. PATIENT IS INCONTINENT. MCDANIELS IN PLACE AND DRAINING YELLOW URINE. FALL PRECAUTION IN PLACE. TELE MONITOR ATTACHED. BED IN LOW POSITION AND CALL LIGHT WITHIN REACH.
[2018-09-18 07:22] LABS: HEMATOCRIT 36.8 % (36-52); HEMOGLOBIN 12.1 g/dL (12.0-18.0); MEAN CORPUSCULAR HEMOGLOBIN 28 pg (27-31); MEAN CORPUSCULAR HGB CONC 33 g/dL (33-37); MEAN CORPUSCULAR VOLUME 84.9 fL (80-94); PLATELET COUNT (AUTO) 251 K/uL (140-450); RED BLOOD CELL COUNT(AUTO) 4.33 MIL/uL (4.20-6.10); RED CELL DISTRIBUTION WIDTH 14.3 % (11.6-13.7); WHITE BLOOD COUNT (AUTO) 16.7 K/uL (4.8-10.8)
[2018-09-18] MEDS: ALBUTEROL SULFATE/IPRATROPIU 3 ML SOL IH SCH ×3 (07:39→19:43)
--- NOTE | 2018-09-18 07:39 | NUR ---
SATURATION 94% ON HUMIDIFIED SUPPLEMENTAL OXYGEN AT 4 LPM VIA NC POST HHN THERAPY TITRATED FIO2 TO 3.5 LPM JASON/RN NOTIFIED
[2018-09-18 07:44] LABS: LYMPHOCYTES % (MANUAL) 10 % (20-46); MONOCYTES % (MANUAL) 10 % (5-12)
[2018-09-18 07:45] LABS: METAMYELOCYTES % 3 % (0-0)
[2018-09-18 07:50] LABS: MAGNESIUM 2.3 mg/dL (1.8-2.4); PHOSPHORUS 2.9 mg/dL (2.5-4.9)
[2018-09-18 07:51] LABS: ANION GAP 13.7 (8-16); CREATININE 2.3 mg/dL (0.7-1.3)
[2018-09-18 07:55] LABS: POTASSIUM 2.7 mmol/L (3.5-5.1)
--- NOTE | 2018-09-18 08:00 | NUR ---
RECEIVED CRITICAL LAB VALUES FOR POTASSIUM 2.7 AND BUN 63 AT [address] REPORT[address] RIZO ABOUT THE CRITICAL LAB VALUES ON 0800. DR RIZO WAS AWARE AND PER DR RIZO SHE WILL ALSO NOTIFY DR ARCHIBALD ABOUT THE CRITICAL LAB.
[2018-09-18] MEDS ORDERED: METOCLOPRAMIDE 10 MG TAB PO SCH ×2 (08:15→11:30)
[2018-09-18] MEDS: CHOLECALCIFEROL 1,000 IU TAB PO SCH (08:47)
[2018-09-18] MEDS: LACTOBACILLUS RHAMNOSUS GG 1 EACH CAP PO SCH (08:47)
[2018-09-18] MEDS: BISACODYL 5 MG TABEC PO SCH (08:47)
[2018-09-18] MEDS: FUROSEMIDE 40 MG TAB PO SCH (08:48)
[2018-09-18] MEDS: DOCUSATE SODIUM 100 MG GELCAP PO SCH (08:48)
[2018-09-18] MEDS ORDERED: POTASSIUM CHLORIDE 10 MEQ TABER PO SCH (09:00)
--- NOTE | 2018-09-18 09:06 | NUR ---
ADMINISTERED MEDS PER MD ORDER, PATIENT TOLERATED WELL. PATIENT IS WATCHING TV ON BE AT THIS TIME. HE IS ON 3.5LPM VIA NC AND SPO2 IS AT 95% AT THIS TIME. DENIES PAIN AND SOB. RESPIRATION IS EVEN AND UNLABORED. TELE MONITOR ATTACHED. BED IN LOW POSITION AND CALL LIGHT WITHIN REACH. SAFETY MEASURES IN PLACE.
[2018-09-18] MEDS ORDERED: POTASSIUM CHLORIDE 40 MEQ, LIDOCAINE 1% 25 MG in NACL 0.9% 250 ML IV SCH (09:15)
--- NOTE | 2018-09-18 10:30 | NUR ---
COLLECTED URINE AND DELIVERED TO LAB. INFORMED AYANNA LOPEZ THAT I NEED TO COLLECT STOOL CULTURE AND HAVE HER NOTIFY WHEN PT HAS A BM.
--- NOTE | 2018-09-18 10:51 | NUR ---
PATIENT IS GOING TO [email or web address] FOR [facility] HEAD W/O CONTRAST ACCOMPANIED BY RADIO TECH ELISHA. PATIENT IS IN STABLE CONDITION.
--- NOTE | 2018-09-18 11:06 | NUR ---
PATIENT CAME BACK ON UNIT. CONNECTED PATIENT BACK TO O2 AND ON 3.5LPM VIA NC. NO SIGNS OF DISTRESS NOTED. SAFETY MEASURES IN PLACE.
--- NOTE | 2018-09-18 11:44 | NUR ---
ASSISTED FERMENTING CELLARS SUPERVISOR TO CLEAN AND CHANGE PATIENT. COLLECTED STOOL CULTURE AND DELIVERED TO LAB. PATIENT IS RESTING ON BED AT THIS TIME. DENIES PAIN AND SOB. ON 3.5LPM VIA NC AND SPO2 AT 95% AT THIS TIME. NO SIGNS OF DISTRESS NOTED. TELE MONITOR IN PLACE. SAFETY MEASURES IN PLACE. Addendum: 09/18/18 at 1238 by Laly Wooten RN PER LAB, THE STOOL COLLECTED IS NOT ENOUGH FOR THE CULTURE, IT HAS TO BE IN THE SPECIMEN CUP NOT THE SMEAR HEMOCCULT. WILL RE-ATTEMPT TO COLLECT STOOL ONCE PATIENT HAS BM. NOTIFIED FERMENTING CELLARS SUPERVISOR THAT STOOL COLLECTION IS NEEDED.
[2018-09-18] MEDS: VANCOMYCIN 500 MG VIAL PO SCH ×2 (11:52→18:05)
--- NOTE | 2018-09-18 12:28 | NUR ---
DURING HOURLY ROUNDING, FOUND PATIENT TOOK OFF HIS NC AND SPO2 DROPPED TO 90%. APPLIED NC ON PATIENT. NO SIGNS OF DISTRESS NOTED. BREATHING IS EVEN AND UNLABORED. EDUCATED PATIENT NOT TO TAKE OFF THE NC AND NC HELPS MAINTAIN HIS BREATHING/SPO2 TO MEET 92% AND OR ABOVE. PATIENT VERBALIZED UNDERSTANDING AND SAID, " OK, I WON'T DO IT AGAIN." SAFETY MEASURES IN PLACE. TELE MONITOR ATTACHED.
--- NOTE | 2018-09-18 13:06 | NUR ---
DC PLANNING: QUALITY ASSURANCE/R&D LAB TECHNICIAN OF CASE MANAGEMENT ( FARZANA ) HAD SPOKE WITH ABEL ( DIPLOMATIC INTERPRETER/TRANSLATOR @ [facility] ) @ AND ROOM NUMBER WAS GIVEN. PATIENT WILL BE GOING TO ROOM 127-C IF DISCHARGE ON WEEKEND. PLEASE CALL FOR REPORT. ALSO, CALL THE [facility] FOR TRANSPORTATION.
--- NOTE | 2018-09-18 13:37 | NUR ---
SATURATION 96%ON SUPPLEMENTAL OXYGEN AT 3.5 LPM VIA NC POST HHN THERAPY AND RESPIRATORY DRUG TITRATED FIO2 TO 3 LPM JASON/RN NOTIFIED
--- NOTE | 2018-09-18 13:40 | NUR ---
RT IS PROVIDING BREATHING TREATMENT TO PATIENT. PER RT PETER, HE WILL TITRATE TO 3LPM VIA NC SINCE PATIENT TOLERATED WELL AND SPO2 IS AT 96% AT THIS TIME. NO SIGNS OF DISTRESS NOTED. SAFETY MEASURES IN PLACE. BED IN LOW POSITION AND CALL LIGHT WITHIN REACH.
[2018-09-18 14:12] LABS: ANION GAP 18.8 (8-16); CARBON DIOXIDE 23.3 mmol/L (21-32); CREATININE 2.1 mg/dL (0.7-1.3); POTASSIUM 3.1 mmol/L (3.5-5.1)
[2018-09-18] MEDS ORDERED: SORBITOL 70% 30 ML UDC PO SCH (15:00)
[2018-09-18] MEDS ORDERED: MAGNESIUM CITRATE 300 ML BTL PO SCH (15:00)
[2018-09-18] MEDS ORDERED: NEOSTIGMINE 1:1000 10 MG/10 ML VIAL IV SCH (15:15)
[2018-09-18] MEDS: PHARMACY COMMENTS MC SCH (15:23)
--- NOTE | 2018-09-18 15:25 | NUR ---
VITAL SIGNS TAKEN PRIOR TO ADMINISTER NEOSTIGMINE. BP 123/59 MAP 80, PULSE 110, TEMP 98.6, SPO2 94 ON 3LPM VIA NC AND RR 2O. NOTIFIED VEHICLE TECHNICIAN TO MONITOR PATIENT'S CARDIAC RHYTHM CLOSELY FOR THE NEXT 60 MINS.
--- NOTE | 2018-09-18 17:00 | NUR ---
COLLECTED STOOL IN SPECIMEN CUP FOR STOOL CULTURE AND C-DIFF. COMPLETED C-DIFF VERIFICATION FORM AND VERIFIED WITH AUTOMATION MACHINE OPERATOR. DELIVERED BOTH SPECIMEN CUPS TO LAB.
[2018-09-18] MEDS: SENNA 8.6 MG TAB PO SCH ×2 (17:19→20:43)
--- NOTE | 2018-09-18 18:07 | NUR ---
ADMINISTERED MEDS PER MD ORDER, PATIENT TOLERATED WELL. PATIENT IS WATCHING TV ON BED. DENIES PAIN AND SOB. NO SIGNS OF DISTRESS NOTED. PATIENT IS ON 3LPM VIA NC AND SPO2 IS AT 98% AT THIS TIME. SAFETY MEASURES IN PLACE. TELE MONITOR ATTACHED.
--- NOTE | 2018-09-18 19:25 | NUR ---
ENDORSED PATIENT AT BEDSIDE TO STRAP MACHINE OPERATOR NURSE FOR CONTINUITY OF CARE. PATIENT IS IN STABLE CONDITION.
--- NOTE | 2018-09-18 19:26 | NUR ---
RECEIVED BEDSIDE REPORT FROM AM NURSE. PATIENT IS AOX1 TO NAME. PT HAS HALLUCINATIONS TALKING TO FRIEND BARRERA PER PREVIOUS SHIFT. REORIENTED PATIENT. PATIENT IS ABLE TO FOLLOW SIMPLE COMMANDS. RESPIRATION IS EVEN AND UNLABORED. PATIENT IS ON 3LPM VIA NC AND O2 SATURATION IS AT 95% AT THIS TIME. IV ON RAC 20G, INTACT AND INFUSING WELL INFUSING PER MD ORDER. SKIN CLEAN AND INTACT. ABDOMEN IS DISTENDED AND ROUND. PATIENT IS INCONTINENT. MCDANIELS IN PLACE AND DRAINING DARK YELLOW URINE. FALL PRECAUTION IN PLACE. TELE MONITOR ATTACHED. BED IN LOW POSITION AND CALL LIGHT WITHIN REACH.
--- NOTE | 2018-09-18 19:53 | NUR ---
WALKED INTO PT ON ROOM AIR AND TOLERATING WELL. SATURATION BETWEEN 92-93%. PT WAS IN NO DISTRESS OR SOB NOTED. WILL CONTINUE TO MONITOR
[2018-09-18] MEDS: POTASSIUM CHLORIDE 20% 40 MEQ/15 ML UDC GT SCH (20:41)
[2018-09-18] MEDS: POLYETHYLENE GLYCOL 17 GM/PKT PO SCH (20:43)
[2018-09-18] MEDS: METOCLOPRAMIDE 10 MG/2 ML INJ VIAL IVP SCH (20:43)
[2018-09-18] MEDS: OLANZapine 5 MG TAB PO SCH (20:44)
[2018-09-18] MEDS: ACETAMINOPHEN 325 MG TAB PO PRN (20:46)
--- NOTE | 2018-09-18 21:00 | NUR ---
GIVEN MED, PT ABLE TO TOLERATE W/ CRUSHED MEDS, SWALLOWING GOOD. AND WITH WATER
--- NOTE | 2018-09-18 23:00 | NUR ---
TURNED PATIENT TO SIDE, CLEANED AND REPOSITIONED
[2018-09-19] VITALS: BP 126/76
--- NOTE | 2018-09-19 | NUR ---
ENDORSED TO ANOTHER NOC SHIFT NURSE, FELIX. PT HAD INCREASED TEMP EARLIER AT 100. 4. INFORMED FELIX NEED TO MONITOR. PT HAS TACHYCARDIA AT 100 EARLIER. ENDORSED NEED FOR VS MONITORING FOR 12 MIDNIGHT
[2018-09-19] MEDS: PIPER/TAZO 2.25GM/D5W PREMIX 50 ML IV SCH ×5 (00:45→23:36)
--- NOTE | 2018-09-19 00:45 | NUR ---
RECEIVED PT FROM ROSA ISELA. PT ON O2 NC @ 3LPM. REDNESS NOTED ON PERINEAL AREA. OTHER THAN THAT, SKIN IS INTACT. WARM AND DRY. TEMP 99.1F NOTED. IV SITE RAC 20G RUNNING D5NS 100MLS/MIN. INTACT, PATENT, ASYMPTOMATIC. PT ON CONTACT PRECAUTION D/T SUSPECTED C.DIFF. ALL PRECAUTIONS ARE MET. GIVEN ZOSYN ORDERED. PT TOLERATED WELL. BED IN LOW POSITION. CALL LIGHT WITHIN REACH. WILL CONTINUE TO MONITOR.
[2018-09-19] MEDS: HYDRAGUARD CREAM TP SCH ×2 (01:00→13:31)
[2018-09-19] MEDS: VANCOMYCIN 500 MG VIAL PO SCH ×5 (01:12→23:37)
--- NOTE | 2018-09-19 02:45 | NUR ---
PT AWAKE. NC OFF FROM PT'S NOSE. EDUCATED PT TO KEEP NC ON. PT VERBALIZED UNDERSTANDING. WILL CONTINUE TO MONITOR.
--- NOTE | 2018-09-19 03:37 | NUR ---
CLARIFIED W/ DR. ROSADO THAT K LEVEL IS 3. 1, AND THAT WE NEED TO GIVE AN IV. HE SAID TO CONTINUE GIVING THE PO, TOLD HIM THAT WE GAVE IT AT [address] SANTA. NO NEW ORDERS FOR TONIGHT FOR POTASSIUM
[2018-09-19 04:00] VITALS: BP 131/84
[2018-09-19] MEDS: DEXT 5% /NACL 0.9% 1,000 ML IV SCH ×2 (04:27→15:29)
[2018-09-19] MEDS: METOCLOPRAMIDE 10 MG/2 ML INJ VIAL IVP SCH ×3 (05:25→20:38)
--- NOTE | 2018-09-19 05:25 | NUR ---
GIVEN SCHEDULED MEDS MD ORDERED. PROVIDE F/C CARE. PT TOLERATED WELL.
[2018-09-19] MEDS: ALBUTEROL SULFATE/IPRATROPIU 3 ML SOL IH SCH ×3 (06:52→18:50)
--- NOTE | 2018-09-19 07:16 | NUR ---
ENDORSED PT TO DAY SHIFT NURSE. PT IN STABLE CONDITION.
--- NOTE | 2018-09-19 07:18 | NUR ---
RECEIVED BEDSIDE REPORT FROM DIRECTOR OF SPORTS PERFORMANCE NURSE FOR CONTINUITY OF CARE. PATIENT IS AOX2 TO NAME AND PLACE. PATIENT IS ABLE TO FOLLOW SIMPLE COMMANDS. RESPIRATION IS EVEN AND UNLABORED. PATIENT IS ON 3LPM VIA NC AND O2 SATURATION IS AT 94% AT THIS TIME. IV ON RAC 20G, INTACT AND CLEAN, INFUSING PER MD ORDER. REDNESS ON ORLY AREA NOTED, OTHERWISE SKIN CLEAN AND INTACT. PATIENT IS INCONTINENT. MCDANIELS IN PLACE AND DRAINING YELLOW URINE. FALL PRECAUTION AND CONTACT PRECAUTION IN PLACE. TELE MONITOR ATTACHED. BED IN LOW POSITION AND CALL LIGHT WITHIN REACH.
[2018-09-19 08:00] VITALS: BP 128/76
[2018-09-19] MEDS: POTASSIUM CHLORIDE 20% 40 MEQ/15 ML UDC GT SCH ×2 (09:11→20:38)
[2018-09-19] MEDS: LACTOBACILLUS RHAMNOSUS GG 1 EACH CAP PO SCH (09:12)
[2018-09-19] MEDS: BISACODYL 10 MG SUPP RC SCH (09:12)
[2018-09-19] MEDS: CHOLECALCIFEROL 1,000 IU TAB PO SCH (09:12)
[2018-09-19] MEDS: POLYETHYLENE GLYCOL 17 GM/PKT PO SCH ×2 (09:12→20:39)
[2018-09-19] MEDS: SENNA 8.6 MG TAB PO SCH ×4 (09:12→20:39)
--- NOTE | 2018-09-19 09:18 | NUR ---
ADMINISTERED MEDS PER MD ORDER, PATIENT TOLERATED WELL. PATIENT IS AWAKE AND WATCHING TV ON BED. PATIENT IS ON 3LPM VIA NC AND SPO2 IS AT 97% AT THIS TIME. PATIENT IS TALKING BY HIMSELF AND POINTING HIS FINGER AT THE AIR. ASKED PATIENT WHO IS HE TALKING WITH? PATIENT SAID, " I AM TALKING TO MY FRIEND." REORIENTED PATIENT THAT HE IS IN THE HOSPITAL AND THERE IS NO THIRD PERSON IN THE ROOM AT THIS TIME. SAFETY MEASURES IN PLACE. BED IN LOW POSITION AND CALL LIGHT WITHIN REACH. TELE MONITOR IN PLACE.
[2018-09-19 09:21] LABS: BASOPHILS # (AUTO) 0.1 K/uL (0.00-0.22); BASOPHILS % (AUTO) 0.2 % (0.0-2.0); EOSINOPHILS # (AUTO) 0.1 K/uL (0-0.4); EOSINOPHILS % (AUTO) 0.5 % (0.0-4.0); HEMATOCRIT 36.8 % (36-52); LYMPHOCYTES # (AUTO) 1.8 K/uL (2.0-11.5); LYMPHOCYTES % (AUTO) 8.3 % (20.5-51.1); MEAN CORPUSCULAR HEMOGLOBIN 28 pg (27-31); MEAN CORPUSCULAR HGB CONC 33 g/dL (33-37); MEAN CORPUSCULAR VOLUME 85.7 fL (80-94); MONOCYTES # (AUTO) 1.3 K/uL (0.8-1.0); MONOCYTES % (AUTO) 6.1 % (1.7-9.3); NEUTROPHILS # (AUTO) 18.2 K/uL (1.8-7.7); NEUTROPHILS % (AUTO) 84.9 % (42.2-75.2); PLATELET COUNT (AUTO) 302 K/uL (140-450); RED BLOOD CELL COUNT(AUTO) 4.29 MIL/uL (4.20-6.10); RED CELL DISTRIBUTION WIDTH 14.7 % (11.6-13.7); WHITE BLOOD COUNT (AUTO) 21.4 K/uL (4.8-10.8)
[2018-09-19 09:25] LABS: MAGNESIUM 2.9 mg/dL (1.8-2.4); PHOSPHORUS 1.3 mg/dL (2.5-4.9)
[2018-09-19 09:29] LABS: ANION GAP 13.7 (8-16); CARBON DIOXIDE 25.1 mmol/L (21-32)
[2018-09-19 09:32] LABS: POTASSIUM 2.8 mmol/L (3.5-5.1)
--- NOTE | 2018-09-19 09:35 | NUR ---
RECEIVED CRITICAL LAB FOR POTASSIUM 2.[address] ARCH[address]D. DR ARCHIBALD WAS AWARE OF POTASSIUM 2.8.
[2018-09-19] MEDS ORDERED: POTASSIUM CHLORIDE 40 MEQ, LIDOCAINE MPF 1% - 5 mL VIAL 25 MG in NACL 0.9% 250 ML IV SCH (10:30)
[2018-09-19] MEDS: PHARMACY COMMENTS MC SCH (11:06)
--- NOTE | 2018-09-19 11:15 | NUR ---
PATIENT IS RESTING ON BED AT THIS TIME. NO SIGNS OF DISTRESS NOTED. SAFETY MEASURES IN PLACE. TELE MONITOR ATTACHED.
[2018-09-19 12:00] VITALS: BP 134/87
--- NOTE | 2018-09-19 12:21 | NUR ---
09/19/18 RD FOLLOW UP COMPLETED PLEASE REFER TO NUTRITION PROGRESS NOTE UNDER CARE ACTIVITY FOR ESTIMATED NUTRITION NEEDS. RD RECOMMENDATION: 1. CONTINUE DIET FULL LIQUID DIET TOLERATED. 2. ADVANCE DIET TO REGULAR WHEN PT IS MEDICALLY APPROPRIATE PER MD. 3. RD TO FOLLOW-UP 3-5 DAYS, MODERATE RISK. EDITA BENAVIDES, RD
--- NOTE | 2018-09-19 13:28 | NUR ---
PATIENT IS AWAKE AND WATCHING TV ON BED. HE IS ON 3LPM VIA NC AND SPO2 IS AT 95% AT THIS TIME. NO SIGNS OF DISTRESS NOTED. BED IN LOW POSITION AND CALL LIGHT WITH IN REACH. TELE MONITOR ATTACHED.
--- NOTE | 2018-09-19 15:24 | NUR ---
PATIENT IS AWAKE AND TALKING BY HIMSELF ON BED. HE SAID, " MY ROOMMATE TOLD ME I AM GOING HOME TOMORROW AND THIS IS MY LAST NIGHT IN THE HOSPITAL." REORIENTED PATIENT THAT THERE IS NO THIRD PERSON IN ROOM AT THIS TIME. PATIENT WAS ABLE TO SAY HIS NAME AND PLACE CORRECTLY. SAFETY MEASURES IN PLACE. TELE MONITOR ATTACHED.
[2018-09-19 16:00] VITALS: BP 140/81
--- NOTE | 2018-09-19 16:40 | NUR ---
DR GILL IS ASSESSING PATIENT AT BEDSIDE.
[2018-09-19] MEDS ORDERED: SODIUM PHOSPHATE 30 MMOLE in NACL 0.9% 250 ML IV ONE (16:45)
--- NOTE | 2018-09-19 17:26 | NUR ---
PATIENT IS SLEEPING AT THIS TIME. HE IS ON 3LPM VIA NC AND SPO2 IS AT 96%. NO SIGNS OF DISTRESS NOTED. SAFETY MEASURES IN PLACE. BED IN LOW POSITION AND CALL LIGHT WITHIN REACH. TELE MONITOR ATTACHED. COLLECTED URINE FOR RANDOM SODIUM PER MD ORDER AND DELIVERED IT TO LAB.
--- NOTE | 2018-09-19 18:00 | NUR ---
UNABLE TO ADMINISTER SODIUM PHOSPHATE VIA IVPB DUE TO PHARMACY AFTER HOUR. NOTIFIED DR ARCHIBALD ON REGARDS AND PER DR ARCHIBALD HE WILL RESCHEDULE IT FOR TOMORROW.
--- NOTE | 2018-09-19 18:14 | NUR ---
PATIENT HAS LARGE BM. ASSISTED STUCCO MASON TO CHANGE PATIENT AND APPLIED HYDRAGUARD ON ORLY AREA. PATIENT TOLERATED WELL. PATIENT IS RESTING ON BED AND WATCHING TV AT THIS TIME. SPO2 IS 95% ON 3 LMP VIA NC. NO SIGNS OF DISTRESS NOTED. SAFETY MEASURES IN PLACE. TELE MONITOR ATTACHED.
--- NOTE | 2018-09-19 19:13 | NUR ---
ENDORSED PATIENT AT BEDSIDE TO FLY FRAME TENDER NURSE FOR CONTINUITY OF CARE. PATIENT IS IN STABLE CONDITION. SAFETY MEASURES IN PLACE.
--- NOTE | 2018-09-19 19:14 | NUR ---
RECEIVED REPORT FROM AM NURSE. PATIENT LYING DOWN IN BED RECEIVING A BREATHING TREATMENT. NO DISTRESS NOTED. RESPIRATIONS EVEN, UNLABORED, ON O2 3L/MIN VIA NC AFTER BREATHING TREATMENT. SKIN INTACT, HOWEVER HAS REDNESS NOTED NO PERINEAL AREA D/T IAD, HYDRAGUARD BEING APPLIED. PATIENT CURRENTLY HAS FEVER OF 100.7, ICE PACKS APPLIED AND WILL ADMINISTER TYLENOL. ABDOMEN DIST IV SITE INTACT, PATENT, AND INFUSING IVF PER MD ORDERS. REVIEWED PLAN OF CARE WITH PATIENT. PATIENT VERBALIZED UNDERSTANDING. SAFETY MEASURES IN PLACE, CALL LIGHT WITHIN REACH. WILL CONTINUE TO MONITOR.
[2018-09-19 20:00] VITALS: BP 123/76
[2018-09-19] MEDS ORDERED: POTASSIUM PHOSPHATE 15 MM in NACL 0.9% 250 ML IV ONE (20:10)
[2018-09-19] MEDS: OLANZapine 5 MG TAB PO SCH (20:39)
[2018-09-19] MEDS: ACETAMINOPHEN 325 MG TAB PO PRN (20:39)
--- NOTE | 2018-09-19 20:51 | NUR ---
PATIENT LYING DOWN IN BED WATCHING TV. NO DISTRESS NOTED. DENIES ANY PAIN. SCHEDULED MEDICATIONS DUE GIVEN. WILL CONTINUE TO MONITOR.
--- NOTE | 2018-09-19 21:46 | NUR ---
RECHECKED PATIENT TEMP, IT IS 98.8 AFTER TYLENOL AND COOLING MEASURES IN PLACE, WILL CONTINUE TO MONITOR.
--- NOTE | 2018-09-19 23:42 | NUR ---
SODIUM PHOSPHATE VIA IV NOT GIVEN DUE TO NEW ORDER OF POTASSIUM PHOSPHATE ORDERED. SCHEDULED MEDICATIONS DUE GIVEN. PATIENT TOLERATED WELL. WILL CONTINUE TO MONITOR.
[2018-09-20] VITALS (7 sets, daily range): BP systolic 133–155; BP diastolic 71–94
[2018-09-20] MEDS: POTASSIUM CHL 10 MEQ/D5-1/2NS 1,000 ML IV SCH ×4 (00:38→23:04)
[2018-09-20] MEDS: HYDRAGUARD CREAM TP SCH ×3 (00:38→23:05)
--- NOTE | 2018-09-20 00:38 | NUR ---
PATIENT LYING DOWN IN BED. NO DISTRESS NOTED. DENIES ANY PAIN. CONDITION UNCHANGED. SCHEDULED MEDICATIONS DUE GIVEN. WILL CONTINUE TO MONITOR.
--- NOTE | 2018-09-20 02:30 | NUR ---
ASSISTED CHIP LOFT WORKER IN CLEANING AND REPOSITIONING PATIENT. WILL CONTINUE TO MONITOR.
[2018-09-20] MEDS: METOCLOPRAMIDE 10 MG/2 ML INJ VIAL IVP SCH ×2 (05:10→20:12)
[2018-09-20] MEDS: PIPER/TAZO 2.25GM/D5W PREMIX 50 ML IV SCH ×4 (05:10→23:04)
[2018-09-20] MEDS: VANCOMYCIN 500 MG VIAL PO SCH (05:11)
--- NOTE | 2018-09-20 05:11 | NUR ---
PATIENT LYING DOWN IN BED, NO DISTRESS NOTED. CONDITION UNCHANGED. SCHEDULED MEDICATIONS DUE GIVEN. WILL CONTINUE TO MONITOR.
--- NOTE | 2018-09-20 06:30 | NUR ---
PATIENT LYING DOWN IN BED SLEEPING, AROUSABLE BY VOICE. NO DISTRESS NOTED. DENIES ANY PAIN. WILL CONTINUE TO MONITOR.
[2018-09-20] MEDS: ALBUTEROL SULFATE/IPRATROPIU 3 ML SOL IH SCH ×3 (07:08→19:51)
--- NOTE | 2018-09-20 07:08 | NUR ---
ASLEEP PATIENT AWAKENS ON COMMAND OFF SUPPLEMENTAL OXYGEN POST HHN THERAPY PLACED ON SUPPLEMENTAL OXYGEN AT 2 LPM VIA NC
[2018-09-20 07:30] LABS: BASOPHILS % (AUTO) 0.1 % (0.0-2.0); EOSINOPHILS # (AUTO) 0.1 K/uL (0-0.4); EOSINOPHILS % (AUTO) 0.5 % (0.0-4.0); HEMATOCRIT 35.6 % (36-52); HEMOGLOBIN 11.3 g/dL (12.0-18.0); LYMPHOCYTES # (AUTO) 1.9 K/uL (2.0-11.5); LYMPHOCYTES % (AUTO) 9.2 % (20.5-51.1); MEAN CORPUSCULAR HEMOGLOBIN 27 pg (27-31); MEAN CORPUSCULAR HGB CONC 32 g/dL (33-37); MEAN CORPUSCULAR VOLUME 86.1 fL (80-94); MONOCYTES # (AUTO) 1.5 K/uL (0.8-1.0); NEUTROPHILS # (AUTO) 17.4 K/uL (1.8-7.7); NEUTROPHILS % (AUTO) 83.2 % (42.2-75.2); PLATELET COUNT (AUTO) 351 K/uL (140-450); RED BLOOD CELL COUNT(AUTO) 4.14 MIL/uL (4.20-6.10); RED CELL DISTRIBUTION WIDTH 15.2 % (11.6-13.7)
--- NOTE | 2018-09-20 07:33 | NUR ---
GAVE REPORT TO AM NURSE FOR CONTINUITY OF CARE. PATIENT IN STABLE CONDITION.
--- NOTE | 2018-09-20 07:38 | NUR ---
RECEIVED HAND OFF REPORT FROM HVAC ENGINEER FROM HVAC ENGINEER NURSE PT IS AWAKE IN BED PT APPEARS STABLE AND IN NO APPARENT DISTRESS. ALL SAFETY MEASURES ARE IN PLACE. WILL CONTINUE TO MONITOR.
[2018-09-20 08:35] LABS: MAGNESIUM 2.2 mg/dL (1.8-2.4); PHOSPHORUS 2.5 mg/dL (2.5-4.9)
[2018-09-20 08:45] LABS: ANION GAP 16.4 (8-16); CREATININE 1.7 mg/dL (0.7-1.3); POTASSIUM 3.4 mmol/L (3.5-5.1)
[2018-09-20] MEDS: SENNA 8.6 MG TAB PO SCH ×2 (09:00→20:13)
[2018-09-20] MEDS: BISACODYL 10 MG SUPP RC SCH (09:00)
[2018-09-20] MEDS: POLYETHYLENE GLYCOL 17 GM/PKT PO SCH (09:00)
[2018-09-20] MEDS: CHOLECALCIFEROL 1,000 IU TAB PO SCH (09:08)
[2018-09-20] MEDS: LACTOBACILLUS RHAMNOSUS GG 1 EACH CAP PO SCH (09:08)
[2018-09-20] MEDS: POTASSIUM CHLORIDE 20% 40 MEQ/15 ML UDC GT SCH ×2 (09:09→20:12)
--- NOTE | 2018-09-20 09:24 | NUR ---
ADMINISTERED MORNING MEDICATIONS. PT IS AWAKE IN BED PT IS STABLE AND IN NO APPARENT DISTRESS. ALL SAFETY MEASURES ARE IN PLACE.
--- NOTE | 2018-09-20 09:25 | NUR ---
[employer] [place] SPOKE WITH PHARMACY THEY HAVE TO MAKE IT THEY SAID IT WILL TAKE SOME TIME. WILL ADMINISTER WHEN IT COMES.
--- NOTE | 2018-09-20 11:52 | NUR ---
PT HAD BOWEL MOVEMENT. PROVIDED PT WITH ORLY CARE AND CHANGED LINENS. REPOSITIONED PT. PT IS STABLE AND IN NO APPARENT DISTRESS. ALL SAFETY MEASURES ARE IN PLACE. WILL CONTINUE TO MONITOR.
[2018-09-20] MEDS: PHARMACY COMMENTS MC SCH (12:04)
--- NOTE | 2018-09-20 13:05 | NUR ---
FREQUENT ROUNDING PT IS STABLE AND IN NO APPARENT DISTRESS. ALL SAFETY MEASURES ARE IN PLACE. WILL CONTINUE TO MONITOR.
[2018-09-20] MEDS ORDERED: POTASSIUM CHLORIDE 10 MEQ TABER PO SCH (14:00)
--- NOTE | 2018-09-20 15:25 | NUR ---
FREQUENT ROUNDING. PT HAD ANOTHER LARGE BOWEL MOVEMENT REPOSITIONED AND CHANGED PT PT IS STABLE AND IN NO APPARENT DISTRESS. ALL SAFETY MEASURES ARE IN PLACE WILL CONTINUE TO MONITOR.
--- NOTE | 2018-09-20 17:36 | NUR ---
FREQUENT ROUNDING ON PT PT IS STABLE AND IN NO APPARENT DISTRESS ALL SAFETY MEASURES ARE IN PLACE WILL CONTINUE TO MONITOR
--- NOTE | 2018-09-20 19:23 | NUR ---
ENDORSED PT TO MORTGAGE LOAN INTERVIEWER RN PT IS AWAKE IN BED PT IS STABLE AND IN NO APPARENT DISTRESS. ALL SAFETY MEASURES ARE
--- NOTE | 2018-09-20 19:30 | NUR ---
RECEIVED BEDSIDE REPORT FROM DAY SHIFT IRAM HURTADO. PATIENT IN BED, ON 3 L NC, V/S STABLE, DENIES PAIN. IV IN RIGHT AC, DRESSING LEAKING, SECURED TUBING, SECURED WITH TAPE. WILL CONTINUE TO MONITOR. MCDANIELS CATH IN PLACE DRAINING YELLOW URINE. BED ALARM ON, CALL LIGHT WITHIN REACH.
[2018-09-20] MEDS: OLANZapine 5 MG TAB PO SCH (20:12)
--- NOTE | 2018-09-20 20:22 | NUR ---
DUE MEDICATIONS GIVEN PATIENT TOLERATED WELL. HELD STOOL [place] DUE TO PATIENT HAVING LOOSE STOOLS. IV DRESSING DRY WILL CONTINUE TO MONITOR.
--- NOTE | 2018-09-20 21:54 | NUR ---
PATIENT WATCHING TV IN BED, BED ALARM ON, WILL CONTINUE TO MONITOR.
--- NOTE | 2018-09-20 22:43 | NUR ---
IV IN LEFT AC LEAKING. DC IV 20 G INTACT, INSERTED NEW IV IN LEFT HAND 22 G.
--- NOTE | 2018-09-20 23:14 | NUR ---
DUE ZOSYN AND FLUIDS GIVEN, V/S STABLE, MCDANIELS CARE PROVIDED
--- NOTE | 2018-09-20 23:30 | NUR ---
IV CAME OUT CATH INTACT, IV IN RIGHT HAND 22 G INSERTED.
--- NOTE | 2018-09-21 01:21 | NUR ---
PATIENT SLEEPING IN BED WILL CONTINUE TO MONITOR
[2018-09-21 03:51] VITALS: BP 148/98
--- NOTE | 2018-09-21 03:56 | NUR ---
PATIENT IN BED, TALKING TO SELF, V/S STABLE, BED IN LOWEST POSITION.
[2018-09-21] MEDS: PIPER/TAZO 2.25GM/D5W PREMIX 50 ML IV SCH ×3 (04:59→17:22)
--- NOTE | 2018-09-21 05:01 | NUR ---
DUE ZOSYN GIVEN
--- NOTE | 2018-09-21 07:24 | NUR ---
ENDORSED PATIENT TO DAY SHIFT NURSE PATIENT STABLE.
--- NOTE | 2018-09-21 07:25 | NUR ---
RECEIVED BED SIDE REPORT FROM CORE FILER RN. PT IN STABLE CONDITION, ALERT AND AWAKE AND TALKING WITH SELF, ON RA WITH NO RESPIRATORY DISTRESS, SKIN COLOR PINK AND DRY, SKIN INTACT, ON FULL LIQUID DIET, IV R HAND 22G RUNNING POTASSIUM CHLORIDE NORMAL SALINE 125CC/HR, IV INTACT, FLUSHES WELL, NO INFILTRATION NOTED. PT WAS ON 3L NC DURING THE NIGHT BUT KEPT TAKING OFF, WILL PUT BACK ON PT IF NEEDED. MCDANIELS CATHETER SECURED TO LEG AND DRAINING WELL, . BED ALARM ON, BED LOW, WILL CONTINUE TO MONITOR
[2018-09-21] MEDS: ALBUTEROL SULFATE/IPRATROPIU 3 ML SOL IH SCH ×3 (07:43→19:34)
[2018-09-21 07:48] LABS: BASOPHILS % (AUTO) 0.2 % (0.0-2.0); EOSINOPHILS # (AUTO) 0.2 K/uL (0-0.4); HEMATOCRIT 35.3 % (36-52); LYMPHOCYTES # (AUTO) 2.7 K/uL (2.0-11.5); LYMPHOCYTES % (AUTO) 14.8 % (20.5-51.1); MEAN CORPUSCULAR HEMOGLOBIN 27 pg (27-31); MEAN CORPUSCULAR HGB CONC 31 g/dL (33-37); MEAN CORPUSCULAR VOLUME 86.5 fL (80-94); MONOCYTES # (AUTO) 1.1 K/uL (0.8-1.0); MONOCYTES % (AUTO) 6.2 % (1.7-9.3); NEUTROPHILS # (AUTO) 14.3 K/uL (1.8-7.7); NEUTROPHILS % (AUTO) 77.8 % (42.2-75.2); PLATELET COUNT (AUTO) 387 K/uL (140-450); RED BLOOD CELL COUNT(AUTO) 4.08 MIL/uL (4.20-6.10); RED CELL DISTRIBUTION WIDTH 14.9 % (11.6-13.7); WHITE BLOOD COUNT (AUTO) 18.4 K/uL (4.8-10.8)
[2018-09-21 08:00] VITALS: BP 144/90
--- NOTE | 2018-09-21 08:00 | NUR ---
CHANGED AND CLEANED PT. PT'S ORLY AREA RED AND IRRITATED BUT NOT OPEN. APPLIED HYDROGUARD PER MD ORDER, WILL CHANGE MORE FREQUENT AND CONTINUE TO MONITOR
[2018-09-21 08:04] LABS: ANION GAP 14.7 (8-16); CARBON DIOXIDE 19.8 mmol/L (21-32); CREATININE 1.6 mg/dL (0.7-1.3); POTASSIUM 4.5 mmol/L (3.5-5.1)
[2018-09-21 08:14] LABS: MAGNESIUM 1.5 mg/dL (1.8-2.4); PHOSPHORUS 2.4 mg/dL (2.5-4.9)
[2018-09-21] MEDS: CHOLECALCIFEROL 1,000 IU TAB PO SCH (08:18)
[2018-09-21] MEDS: POTASSIUM CHLORIDE 20% 40 MEQ/15 ML UDC GT SCH ×2 (08:18→21:00)
[2018-09-21] MEDS: LACTOBACILLUS RHAMNOSUS GG 1 EACH CAP PO SCH (08:19)
[2018-09-21] MEDS: SENNA 8.6 MG TAB PO SCH (08:19)
[2018-09-21] MEDS: METOCLOPRAMIDE 10 MG/2 ML INJ VIAL IVP SCH (08:20)
[2018-09-21] MEDS: POTASSIUM CHL 10 MEQ/D5-1/2NS 1,000 ML IV SCH (08:30)
[2018-09-21] MEDS: POLYETHYLENE GLYCOL 17 GM/PKT PO SCH (08:38)
[2018-09-21] MEDS: BISACODYL 10 MG SUPP RC SCH (08:38)
[2018-09-21] MEDS: PHARMACY COMMENTS MC SCH (08:39)
--- NOTE | 2018-09-21 09:45 | NUR ---
CAME BY TO SEE PT, STOPPED IV FLUIDS BECAUSE PT FEELS CONGESTED, ORDERED LASIX IVP DAILY AND ORDERED CXR FOR SOB. PT ON 3L NC BECAUSE OF LABORED BREATHING BUT SPO2 94% ON RA, WILL CONTINUE TO MONITOR
[2018-09-21] MEDS ORDERED: FUROSEMIDE 40 MG/4 ML VIAL IVP SCH (10:15)
--- NOTE | 2018-09-21 11:50 | NUR ---
PT LYING IN BED, AWAKE, TALKING TO HIMSELF. PT DENIES PAIN OR SOB. Addendum: 09/22/18 at 0321 by Connor Doss RN WRONG TIME
[2018-09-21 12:00] VITALS: BP 132/81
[2018-09-21] MEDS ORDERED: SODIUM PHOS / POTASSIUM PHOS 1 PKT PDR PO SCH (12:15)
[2018-09-21] MEDS: HYDRAGUARD CREAM TP SCH (12:22)
--- NOTE | 2018-09-21 12:50 | NUR ---
PT TALKING TO SELF, PT ATE LUNCH 100%, ON 2L NC, NO RESPIRATORY DISTRESS
[2018-09-21] MEDS ORDERED: MAG SULF 2000 MG/WATER PREMIX 50 ML IV SCH (13:00)
[2018-09-21] MEDS: Z-GUARD PASTE TP SCH ×2 (14:55→21:02)
--- NOTE | 2018-09-21 15:00 | NUR ---
WOUND CARE NURSE SARIKA CAME, RECOMMENDED Z GUARD FOR THE ORLY AREA IAD.
[2018-09-21] MEDS ORDERED: Z-GUARD PASTE TP ONE (15:03)
[2018-09-21 16:00] VITALS: BP 136/73
--- NOTE | 2018-09-21 16:19 | NUR ---
DC PLANNING: SPOKE WITH ABEL ( SLAB OFF MILL TENDER @ [facility]) @ . PATIENT IS ACCEPTED BACK AND ROOM NUMBER IS [id number]. CM TO FOLLOW UP TOMORROW IF PATIENT WILL BE DISCHARGE TO [facility] TRANSPORTATION AND INFORM SLAB OFF MILL TENDER ( ABEL).
--- NOTE | 2018-09-21 19:30 | NUR ---
GAVE BED SIDE REPORT TO SALVAGE MECHANIC RN, PT IN STABLE CONDITION
--- NOTE | 2018-09-21 19:31 | NUR ---
RECEIVED REPORT FROM DAY SHIFT NURSE. AAOX1. NO C/O PAIN OR SOB. ON O2 AT 2L/MIN VIA NC. SKIN INTACT. IV TO RIGHT HAND #22G, PATENT AND INTACT. PT HAS MCDANIELS CATH, DRAINING CLEAR YELLOW URINE. SAFETY PRECAUTION IN PLACE. CALL LIGHT WITHIN REACH.
[2018-09-21 20:00] VITALS: BP 136/85
[2018-09-21] MEDS: OLANZapine 5 MG TAB PO SCH (21:00)
--- NOTE | 2018-09-21 21:00 | NUR ---
DUE MEDS GIVEN. PT TOLERATED WELL. PT KEPT DRY AND COMFORTABLE.
--- NOTE | 2018-09-21 23:50 | NUR ---
PT LYING IN BED, AWAKE, TALKING TO HIMSELF. PT DENIES PAIN OR SOB.
[2018-09-22] VITALS: BP 111/72
[2018-09-22] MEDS: PIPER/TAZO 2.25GM/D5W PREMIX 50 ML IV SCH ×4 (00:04→17:01)
[2018-09-22] MEDS: HYDRAGUARD CREAM TP SCH ×2 (00:07→13:00)
--- NOTE | 2018-09-22 02:30 | NUR ---
PT WAS CLEANSED AND CHANGED BY FURNACE MECHANIC HELPER. REPOSITION FOR COMFORT. ALL NEEDS ATTENDED AT THIS TIME.
[2018-09-22 04:00] VITALS: BP 131/71
--- NOTE | 2018-09-22 04:30 | NUR ---
PT SLEEPING AT THIS TIME. RESP EVEN AND UNLABORED. NO S/S OF PAIN OR DISCOMFORT. FALL PRECAUTION IN PLACE. CALL LIGHT WITHIN REACH.
--- NOTE | 2018-09-22 05:40 | NUR ---
PT AWAKE, CLEANSED AND CHANGED. DENIES PAIN. NO RESP DISTRESS NOTED. ALL NEEDS ATTENDED AT THIS TIME. Addendum: 09/22/18 at 0728 by Connor Doss RN PT HAD LARGE WATERY STOOL. CLEANSED AND CHANGED. PT KEPT CLEAN, DRY AND COMFORTABLE.
--- NOTE | 2018-09-22 07:10 | NUR ---
ENDORSED PT TO DAY SHIFT NURSE. PT IN STABLE CONDITION.
--- NOTE | 2018-09-22 07:12 | NUR ---
RECEIVED BED SIDE REPORT FROM EDGE STRIPPER RN, PT IN STABLE CONDITION, NC OUT OF PT'S NOSE BUT EDUCATED PT ON THE IMPORTANCE OF KEEPING O2 ON. PUT O2 BACK ON, BED ALARM ON WILL CONTINUE TO MONITOR
[2018-09-22] MEDS: ALBUTEROL SULFATE/IPRATROPIU 3 ML SOL IH SCH ×2 (07:50→13:53)
[2018-09-22 08:00] VITALS: BP 138/56
[2018-09-22 08:13] LABS: BASOPHILS % (AUTO) 0.2 % (0.0-2.0); EOSINOPHILS # (AUTO) 0.3 K/uL (0-0.4); EOSINOPHILS % (AUTO) 1.7 % (0.0-4.0); HEMATOCRIT 33.3 % (36-52); LYMPHOCYTES # (AUTO) 2.3 K/uL (2.0-11.5); LYMPHOCYTES % (AUTO) 12.7 % (20.5-51.1); MEAN CORPUSCULAR HEMOGLOBIN 28 pg (27-31); MEAN CORPUSCULAR HGB CONC 33 g/dL (33-37); MEAN CORPUSCULAR VOLUME 85.1 fL (80-94); MONOCYTES # (AUTO) 0.8 K/uL (0.8-1.0); MONOCYTES % (AUTO) 4.4 % (1.7-9.3); NEUTROPHILS # (AUTO) 14.8 K/uL (1.8-7.7); PLATELET COUNT (AUTO) 446 K/uL (140-450); RED BLOOD CELL COUNT(AUTO) 3.91 MIL/uL (4.20-6.10); RED CELL DISTRIBUTION WIDTH 14.5 % (11.6-13.7); WHITE BLOOD COUNT (AUTO) 18.3 K/uL (4.8-10.8)
[2018-09-22] MEDS ORDERED: SENN-74 PO (08:30)
[2018-09-22] MEDS ORDERED: Hydraguard TP (08:30)
[2018-09-22] MEDS: POTASSIUM CHL 10 MEQ/D5-1/2NS 1,000 ML IV SCH (08:30)
[2018-09-22] MEDS ORDERED: BISA10SU27 RC (08:30)
[2018-09-22] MEDS ORDERED: LACT10CA PO (08:30)
[2018-09-22] MEDS ORDERED: POLY17PD46 PO (08:30)
[2018-09-22 08:34] LABS: CREATININE 1.5 mg/dL (0.7-1.3)
[2018-09-22] MEDS: LACTOBACILLUS RHAMNOSUS GG 1 EACH CAP PO SCH (08:35)
[2018-09-22] MEDS: CHOLECALCIFEROL 1,000 IU TAB PO SCH (08:35)
[2018-09-22] MEDS: POLYETHYLENE GLYCOL 17 GM/PKT PO SCH (08:38)
[2018-09-22] MEDS: BISACODYL 10 MG SUPP RC SCH (08:39)
[2018-09-22 08:49] LABS: MAGNESIUM 1.7 mg/dL (1.8-2.4); PHOSPHORUS 2.7 mg/dL (2.5-4.9)
[2018-09-22 08:54] LABS: ANION GAP 14.5 (8-16); POTASSIUM 4.5 mmol/L (3.5-5.1)
[2018-09-22] MEDS ORDERED: SENNA 8.6 MG TAB PO SCH (09:00)
[2018-09-22] MEDS ORDERED: FUROSEMIDE 40 MG/4 ML VIAL IVP SCH (09:00)
[2018-09-22] MEDS ORDERED: METOCLOPRAMIDE 10 MG/2 ML INJ VIAL IVP SCH (09:00)
[2018-09-22] MEDS ORDERED: POTASSIUM CHLORIDE 20% 40 MEQ/15 ML UDC PO SCH (09:00)
[2018-09-22] MEDS: Z-GUARD PASTE TP SCH (09:50)
--- NOTE | 2018-09-22 11:02 | NUR ---
PT TALKING TO SELF, RESTING COMFORTABLY IN BED, BED ALARM ON, BED LOW, OXYGEN NOT ON PATIENT BUT NOT IN RESPIRATORY DISTRESS. DC ORDER IN, WILL WAIT FOR PHONE CALL FROM CM CONCERNING TRANSPORTATION. WILL CONTINUE TO MONITOR
--- NOTE | 2018-09-22 11:23 | NUR ---
CASE MANAGEMENT: SPOKE WITH ABEL ( RN INTAKE @ [facility]) @ CONFIRMED ROOM NUMBER [id number]. ABEL HAS APPROVED AND AUTHORIZED TRANSPORTATION VIA [employer] CONTACTED [facility]SP[facility] AT SPOKE WITH ANGELIA (DISPATCH) AND PROFESSIONAL DEVELOPMENT DIRECTOR TIME IS AT 1:30-2:30PM. Addendum: 09/22/18 at 1240 by Monique Araujo CM CM attempted to contact Next of kin ( Hattie Ortiz) @ and person to notify (Brad bass) @ regarding patient discharge to [facility]. However, was unavailable. CM left a voice message and call back number. Awaiting for call back. Transportation has been set up for 5-6PM picking table worker today.
[2018-09-22 12:00] VITALS: BP 144/90
--- NOTE | 2018-09-22 12:19 | NUR ---
SPOKE WITH CM ABOUT PT'S TRANSPORTATION. ATTEMPTED TO CALL JOSE BARKER AND ADONAY ADAMS MULTIPLE TIMES TO LET THEM KNOW THAT PT IS TO BE DC TO NEW FACILITY [facility]. THEY DID NOT ANSWER, I LEFT A COUPLE VOICEMAILS BUT NO CALL BACK. WILL CONTINUE TO TRY TO GET A HOLD OF THEM
--- NOTE | 2018-09-22 13:07 | NUR ---
LUBRICATING SPECIALIST GRACE ORDERED Z GUARD TO BE APPLIED TO RED PERIA AREA. HYDROGUARD NOT EFFECTIVE
--- NOTE | 2018-09-22 13:50 | NUR ---
JOSE BARKER FROM [facility] CALLED BACK. SPOKE TO HIM ABOUT PT BEING DC TO [facility] TODAY AT 1700
[2018-09-22 16:00] VITALS: BP 137/87
--- NOTE | 2018-09-22 16:59 | NUR ---
SPOKE TO DANI WALDEN FROM [facility] AND GAVE REPORT ON PT. STARTED ZOSYN AT 1700. TRANSPORT [facility] TRANSPORT TO [place] ASSESSOR PT SOON VIA [facility]
--- NOTE | 2018-09-22 17:35 | NUR ---
[facility] TRANSPORT PICKED UP PT. RENAY MCDANIELS. ZOLTAN FINISHED. PT ON RA IN NO DISTRESS. PT LEAVING WITH IV IN PLACE R HAND 22G FLUSHING WELL, NO REDNESS NOTED. PT IN STABLE CONDITION
== END 2018-09-22 17:40 | DRG 871 ==
LOC: MED 16:45 → MTU 18:19
PROVIDERS: ADMIT General Practice; ATTEND General Practice
PROC: 0D7Q7ZZ Dilation of Anus, Via Natural or Artificial Opening (ICD-10-PCS; principal; 2018-09-15 07:30)
DX: A41.9 Sepsis, unspecified organism (principal); J69.0 Pneumonitis due to inhalation of food and vomit; G93.41 Metabolic encephalopathy; N17.0 Acute kidney failure with tubular necrosis; J96.01 Acute respiratory failure with hypoxia; E87.1 Hypo-osmolality and hyponatremia; E44.0 Moderate protein-calorie malnutrition; K56.7 Ileus, unspecified; K40.00 Bilateral inguinal hernia, with obstruction, without gangrene, not specified as recurrent; E66.9 Obesity, unspecified; Z71.3 Dietary counseling and surveillance; E03.9 Hypothyroidism, unspecified; E83.39 Other disorders of phosphorus metabolism; E87.6 Hypokalemia; E87.5 Hyperkalemia; F29 Unspecified psychosis not due to a substance or known physiological condition; G80.9 Cerebral palsy, unspecified; I12.9 Hypertensive chronic kidney disease with stage 1 through stage 4 chronic kidney disease, or unspecified chronic kidney disease; E11.65 Type 2 diabetes mellitus with hyperglycemia; E11.22 Type 2 diabetes mellitus with diabetic chronic kidney disease; N18.3 Chronic kidney disease, stage 3 (moderate); E83.41 Hypermagnesemia; E86.0 Dehydration; R65.20 Severe sepsis without septic shock; K63.89 Other specified diseases of intestine; J40 Bronchitis, not specified as acute or chronic; K52.9 Noninfective gastroenteritis and colitis, unspecified; K56.41 Fecal impaction; Q90.9 Down syndrome, unspecified; Z68.30 Body mass index [BMI] 30.0-30.9, adult; Z88.8 Allergy status to other drugs, medicaments and biological substances; Z79.82 Long term (current) use of aspirin; Z79.899 Other long term (current) drug therapy
CPT/HCPCS: 36415; 36600; 71045; 74018; 74250; 76770; 78582; 80048; 80053; 80305; 81003; 82140; 82150; 82803; 82948; 83036; 83605; 83690; 83735; 83880; 84100; 84300; 84439; 84443; 84479; 84484; 85025; 85610; 85730; 87040; 87045; 87070; 87081; 87086; 93005; 94640; 96361; 96365; 96375; 99291; A9540; G0480; G0482; J1644; J1815; J1940; J2001; J2405; J2543; J2710; J2765; J3370; J3475; J3480; J3490; J7030; J7042; J7060; J7620; J8597; Q0092